=== PATIENT | female | born 1945 | race Caucasian/White ===

== ENCOUNTER 2018-08-15 22:03 | Emergency (ER) | payer MEDICARE, OTHER ==
[2018-08-15 22:11] VITALS: BP 133/85
[2018-08-15] MEDS ORDERED: Albuterol/Ipratropium 3.0-0.5 MG/3 ML Neb Soln NEB ONE (22:29)
--- NOTE | 2018-08-15 22:35 | EDM.PDOC ---
ED HPI GENERAL MEDICAL PROBLEM - General Chief Complaint: Respiratory Problem Stated Complaint: shortness of breath Time Seen by Provider: 08/15/18 22:08 Source of Information: Reports: Patient, RN, RN Notes Reviewed History Limitations: Reports: No Limitations - History of Present Illness INITIAL COMMENTS - FREE TEXT/NARRATIVE: Patient presents to the ED at [facility] complaining of SOB, wheezing, productive cough, and a hoarse voice. Symptoms started about 2 days ago and have progressively gotten worse. Patient denies any eye or ear problems. No chest pain. Patient denies any N/V/D. No focal neurological complaints. Patient has not taken anything OTC. Patient is trying to stay well hydrated with good PO fluid intake. Close family members have been sick with similar symptoms. Patient states she has a slight sore throat. She states her granddaughter had "strep" last week. Onset Date: 08/13/18 - Related Data Allergies Allergy/AdvReac Type Severity Reaction Status Date / Time Penicillins Allergy Hives Verified 08/15/18 22:09 Home Meds: Home Meds Albuterol Sulfate [Albuterol Sulfate HFA] 2 puff INH Q4H PRN 08/11/14 [History] Aspirin [Halfprin] 81 mg PO DAILY 08/11/14 [History] Cyclobenzaprine [Flexeril] 5 - 10 mg PO TID PRN 08/11/14 [History] Rosuvastatin [Crestor] 10 mg PO DAILY 08/11/14 [History] Carvedilol [Coreg] 12.5 mg PO BIDMEALS 08/05/16 [History] Furosemide [Lasix] 40 mg PO DAILY@0800 08/05/16 [History] Lisinopril [Zestril] 5 mg PO DAILY 08/05/16 [History] Nitroglycerin [Nitrostat] 0.4 mg SL Q5M PRN 08/05/16 [History] metFORMIN [Glucophage] 500 mg PO BIDMEALS 08/05/16 [History] Cetirizine [ZyrTEC] 10 mg PO DAILY PRN 10/20/17 [History] Furosemide 20 mg PO DAILY@1200 10/20/17 [History] Omeprazole 20 mg PO DAILY PRN 10/20/17 [History] Tiotropium Br/Olodaterol HCl [Stiolto Respimat Inhal [place]] 2 puff PO DAILY [History] Triamcinolone Acetonide [Nasacort] 1 spray NASBOTH DAILY PRN 10/20/17 [History] Azithromycin [Zithromax] 250 mg PO DAILY 4 Days #4 tab 08/15/18 [Rx] predniSONE 20 mg PO DAILY 3 Days #3 tab 08/15/18 [Rx] Past Medical History HEENT History: Reports: Other (See Below) Other HEENT History: allergic rhinitis. presbyopia. hypermetropia. blepharitis Cardiovascular History: Reports: Hypertension, Stents Other Cardiovascular History: tachycardia, varicose veins Respiratory History: Reports: COPD Gastrointestinal History: Reports: GERD Other Gastrointestinal History: hx colon polyps Genitourinary History: Reports: Other (See Below) Other Genitourinary History: stress incont. bladder surgery(urethropexy) Musculoskeletal History: Reports: Back Pain, Chronic, Osteoarthritis Other Musculoskeletal History: carpal tunnel suyndrome Endocrine/Metabolic History: Reports: Diabetes, Type II Other Dermatologic History: rosacea - Past Surgical History HEENT Surgical History: Reports: Adenoidectomy, Cataract Surgery, Tonsillectomy Other Female Surgeries/Procedures: bladder sx Endocrine Surgical History: Reports: Other (See Below) Other Endocrine Surgeries/Procedures: thyroid nodule Social & Family History - Tobacco Use Smoking Status *Q: Former Smoker Used Tobacco, but Quit: Yes Month/Year Tobacco Last Used: quit 20 yrs ago - Caffeine Use Caffeine Use: Reports: Soda ED ROS GENERAL - Review of Systems Review Of Systems: See Below Constitutional: Denies: Fever, Chills, Weakness HEENT: Reports: Throat Pain, Throat Swelling. Denies: Ear Pain, Eye Discharge, Rhinitis, Sinus Problem Respiratory: Reports: Shortness of Breath, Wheezing, Cough Cardiovascular: Denies: Chest Pain, Palpitations GI/Abdominal: Denies: Abdominal Pain, Nausea, Vomiting Skin: Reports: No Symptoms Neurological: Reports: No Symptoms ED EXAM, GENERAL - Physical Exam Exam: See Below Exam Limited By: No Limitations General Appearance: Alert, No Apparent Distress Eye Exam: Bilateral Eye: Normal Inspection, PERRL Ears: Normal External Exam, Normal Canal, Normal TMs Ear Exam: Bilateral Ear: TM normal Nose: Normal Inspection, Normal Mucosa Throat/Mouth: Other (mild erythema and very dry mucous membranes) Neck: Supple Respiratory/Chest: No Respiratory Distress, Decreased Breath Sounds, Rhonchi, Wheezing Cardiovascular: Normal Peripheral Pulses, Regular Rate, Rhythm Peripheral Pulses: 2+: Radial (L), Radial (R) GI/Abdominal: Normal Bowel Sounds, Soft, Non-Tender Neurological: Alert, Oriented Skin Exam: Warm, Dry, Intact, Normal Color Course - Vital Signs Last Recorded V/S: Last Vital Signs Temp 36.4 C 08/15/18 22:09 Pulse 88 08/15/18 22:09 Resp 26 H 08/15/18 22:09 BP 133/85 08/15/18 22:09 Pulse Ox 91 L 08/15/18 22:09 - Orders/Labs/Meds Orders: Active Orders 24 hr Category Date Time Status RT Aerosol Therapy [RC] ASDIRECTED Care 08/15/18 22:29 Active Chest 2V [CR] Stat Exams 08/15/18 22:30 Taken CULTURE STREP A CONFIRMATION [RM] Stat Lab 08/15/18 22:50 Results STREP SCRN A RAPID W CULT CONF [RM] Stat Lab 08/15/18 22:50 Results predniSONE [Take Home: predniSONE 20 MG, 2 Tab Pack] Med 08/15/18 23:15 Once 1 packet PO ONETIME ONE Meds: Medications Discontinued Medications Generic Name Dose Route Start Last Admin Trade Name Khurram PRN Reason Stop Dose Admin Albuterol/Ipratropium 3 ml 08/15/18 22:29 08/15/18 22:32 Duoneb 3.0-0.5 Mg/3 Ml NEB 08/15/18 22:30 3 ml ONETIME ONE Administration Azithromycin 1 packet 08/15/18 23:12 Take Home: Azithromycin 250 Mg, 2 Tab Pack PO 08/15/18 23:13 ONETIME ONE Departure - Departure Time of Disposition: 23:17 Disposition: Home, Self-Care 01 Condition: Good Clinical Impression: Wheezing Acute bronchitis Qualifiers: Bronchitis organism: unspecified organism Qualified Code(s): J20.9 - Acute bronchitis, unspecified - Discharge Information *PRESCRIPTION DRUG MONITORING PROGRAM REVIEWED*: Not Applicable *COPY OF PRESCRIPTION DRUG MONITORING REPORT IN PATIENT MARIAH: Not Applicable Prescriptions: Azithromycin [Zithromax] 250 mg PO DAILY 4 Days #4 tab predniSONE 20 mg PO DAILY 3 Days #3 tab Instructions: Acute Bronchitis, Adult Referrals: Batsheva Navarrete PA-C [Primary Care Provider] - Forms: ED Department Discharge Additional Instructions: 1. Stay well hydrated and rest 2. Take medication as directed for the full coarse 3. Cough will linger for a couple more weeks 4. LOTS of water 5. See your PCP next week as symptoms warrant - Problem List Review Problem List Initiated/Reviewed/Updated: Yes - My Orders Last 24 Hours: My Active Orders 08/15/18 22:29 RT Aerosol Therapy [RC] ASDIRECTED 08/15/18 22:30 Chest 2V [CR] Stat 08/15/18 22:50 CULTURE STREP A CONFIRMATION [RM] Stat STREP SCRN A RAPID W CULT CONF [RM] Stat 08/15/18 23:15 predniSONE [Take Home: predniSONE 20 MG, 2 Tab Pack] 1 packet PO ONETIME ONE - Assessment/Plan Last 24 Hours: My Active Orders 08/15/18 22:29 RT Aerosol Therapy [RC] ASDIRECTED 08/15/18 22:30 Chest 2V [CR] Stat 08/15/18 22:50 CULTURE STREP A CONFIRMATION [RM] Stat STREP SCRN A RAPID W CULT CONF [RM] Stat 08/15/18 23:15 predniSONE [Take Home: predniSONE 20 MG, 2 Tab Pack] 1 packet PO ONETIME ONE Assessment:: Acute Bronchitis Wheezing Hx of Pneumonia Plan: Given the patients strong pneumonia history, with start ZPak empirically. Prednisone daily for 5 days and have patient f/u with PCP this week. Patient agrees with POC and wishes to proceed.
[2018-08-15] MEDS ORDERED: Take Home: Azithromycin 250 MG, 2 Tab Pack PO ONE (23:12)
[2018-08-15] MEDS ORDERED: Take Home: predniSONE 20 MG, 2 Tab Pack PO ONE (23:15)
== END 2018-08-15 23:29 | disposition home or self-care (01) ==
LOC: VM.ED 22:03
DX: J20.9 Acute bronchitis, unspecified (principal); J44.9 Chronic obstructive pulmonary disease, unspecified; E11.9 Type 2 diabetes mellitus without complications; I10 Essential (primary) hypertension; Z87.891 Personal history of nicotine dependence; Z88.0 Allergy status to penicillin; Z87.01 Personal history of pneumonia (recurrent)
CPT/HCPCS: 71046; 87081; 87880-QW; 99285; A9270-GY; J7620-GY

== ENCOUNTER 2018-08-16 02:41 | Inpatient (IN) | payer MEDICARE, OTHER ==
[2018-08-16] MEDS ORDERED: methylPREDNISolone Sodium Succinate 125 MG/2 ML SDV IVPUSH ONE (02:48)
[2018-08-16] MEDS ORDERED: Albuterol/Ipratropium 3.0-0.5 MG/3 ML Neb Soln NEB ONE ×2 (02:48→02:57)
[2018-08-16] MEDS ORDERED: Sodium Chloride 0.9% 1,000 ML IV ONE (02:49)
--- NOTE | 2018-08-16 02:55 | EDM.PDOC ---
ED HPI GENERAL MEDICAL PROBLEM - General Chief Complaint: Respiratory Problem Stated Complaint: dyspnea Time Seen by Provider: 08/16/18 02:43 Source of Information: Reports: Patient, Family, RN, RN Notes Reviewed History Limitations: Reports: No Limitations - History of Present Illness INITIAL COMMENTS - FREE TEXT/NARRATIVE: Patient returns to the ED at [facility] for worsening upper respiratory and audible wheezing. Patient was seen earlier in this ER and diagnosed with acute bronchitis. Patient states she felt ok when she was at home, but progressively the wheezing worsened. She states she still has a cough, but it is very dry. She feels short of breath. No chest pain. No focal neurological problems. Patient states her chest feels "really tight." She states it is difficult to take in a deep breath. - Related Data Allergies Allergy/AdvReac Type Severity Reaction Status Date / Time Penicillins Allergy Hives Verified 08/16/18 02:42 Home Meds: Home Meds Albuterol Sulfate [Albuterol Sulfate HFA] 2 puff INH Q4H PRN 08/11/14 [History] Aspirin [Halfprin] 81 mg PO DAILY 08/11/14 [History] Cyclobenzaprine [Flexeril] 5 - 10 mg PO TID PRN 08/11/14 [History] Rosuvastatin [Crestor] 10 mg PO DAILY 08/11/14 [History] Carvedilol [Coreg] 12.5 mg PO BIDMEALS 08/05/16 [History] Furosemide [Lasix] 40 mg PO DAILY@0800 08/05/16 [History] Lisinopril [Zestril] 5 mg PO DAILY 08/05/16 [History] Nitroglycerin [Nitrostat] 0.4 mg SL Q5M PRN 08/05/16 [History] metFORMIN [Glucophage] 500 mg PO BIDMEALS 08/05/16 [History] Cetirizine [ZyrTEC] 10 mg PO DAILY PRN 10/20/17 [History] Furosemide 20 mg PO DAILY@1200 10/20/17 [History] Omeprazole 20 mg PO DAILY PRN 10/20/17 [History] Tiotropium Br/Olodaterol HCl [Stiolto Respimat Inhal [place]] 2 puff PO DAILY [History] Triamcinolone Acetonide [Nasacort] 1 spray NASBOTH DAILY PRN 10/20/17 [History] Azithromycin [Zithromax] 250 mg PO DAILY 4 Days #4 tab 08/15/18 [Rx] predniSONE 20 mg PO DAILY 3 Days #3 tab 08/15/18 [Rx] Past Medical History HEENT History: Reports: Other (See Below) Other HEENT History: allergic rhinitis. presbyopia. hypermetropia. blepharitis Cardiovascular History: Reports: Hypertension, Stents Other Cardiovascular History: tachycardia, varicose veins Respiratory History: Reports: COPD Gastrointestinal History: Reports: GERD Other Gastrointestinal History: hx colon polyps Genitourinary History: Reports: Other (See Below) Other Genitourinary History: stress incont. bladder surgery(urethropexy) Musculoskeletal History: Reports: Back Pain, Chronic, Osteoarthritis Other Musculoskeletal History: carpal tunnel suyndrome Endocrine/Metabolic History: Reports: Diabetes, Type II Other Dermatologic History: rosacea - Past Surgical History HEENT Surgical History: Reports: Adenoidectomy, Cataract Surgery, Tonsillectomy Other Female Surgeries/Procedures: bladder sx Endocrine Surgical History: Reports: Other (See Below) Other Endocrine Surgeries/Procedures: thyroid nodule Social & Family History - Tobacco Use Smoking Status *Q: Former Smoker Used Tobacco, but Quit: Yes Month/Year Tobacco Last Used: 18 years ago - Caffeine Use Caffeine Use: Reports: Soda ED ROS GENERAL - Review of Systems Review Of Systems: See Below Constitutional: Reports: Weakness. Denies: Fever, Chills HEENT: Reports: Throat Pain. Denies: Ear Discharge, Eye Discharge Respiratory: Reports: Shortness of Breath, Wheezing, Cough Cardiovascular: Denies: Chest Pain, Palpitations GI/Abdominal: Denies: Abdominal Pain, Nausea, Vomiting Skin: Reports: No Symptoms Neurological: Reports: No Symptoms ED EXAM, GENERAL - Physical Exam Exam: See Below Exam Limited By: No Limitations General Appearance: Alert, Mild Distress, Obese Respiratory/Chest: No Respiratory Distress, Decreased Breath Sounds, Wheezing Cardiovascular: Normal Peripheral Pulses, Regular Rate, Rhythm GI/Abdominal: Normal Bowel Sounds, Soft, Non-Tender Neurological: Alert, Oriented Skin Exam: Warm, Dry, Intact, Normal Color Course - Vital Signs Last Recorded V/S: Last Vital Signs Temp 36.4 C 08/16/18 02:42 Pulse 102 H 08/16/18 02:42 Resp 30 H 08/16/18 02:42 BP 161/77 H 08/16/18 02:42 Pulse Ox 69 L 08/16/18 02:42 - Orders/Labs/Meds Orders: Active Orders 24 hr Category Date Time Status RT Aerosol Therapy [RC] ASDIRECTED Care 08/16/18 02:48 Active BASIC METABOLIC PANEL,BMP [CHEM] Stat Lab 08/16/18 02:54 Ordered BLOOD GAS ARTERIAL [BG] Stat Lab 08/16/18 02:54 Ordered CBC WITH AUTO DIFF [HEME] Stat Lab 08/16/18 02:54 Ordered MAGNESIUM [CHEM] Stat Lab 08/16/18 02:54 Ordered Sodium Chloride 0.9% [Normal Saline] 1,000 ml Med 08/16/18 02:49 Active IV ONETIME Sodium Chloride 0.9% [Saline Flush] Med 08/16/18 02:50 Active 10 ml FLUSH ASDIRECTED PRN Peripheral IV Insertion Adult [OM.PC] Routine Oth 08/16/18 02:50 Ordered Medication Orders Sodium Chloride (Normal Saline) 1,000 mls @ 999 mls/hr IV ONETIME ONE Stop: 08/16/18 03:49 Last Admin: 08/16/18 02:58 Dose: 999 mls/hr Sodium Chloride (Saline Flush) 10 ml FLUSH ASDIRECTED PRN PRN Reason: Keep Vein Open Meds: Medications Generic Name Dose Route Start Last Admin Trade Name Freq PRN Reason Stop Dose Admin Sodium Chloride 1,000 mls @ 999 mls/hr 08/16/18 02:49 08/16/18 02:58 Normal Saline IV 08/16/18 03:49 999 mls/hr ONETIME ONE Administration Sodium Chloride 10 ml 08/16/18 02:50 Saline Flush FLUSH ASDIRECTED PRN Keep Vein Open Discontinued Medications Generic Name Dose Route Start Last Admin Trade Name Freq PRN Reason Stop Dose Admin Albuterol/Ipratropium 3 ml 08/16/18 02:48 08/16/18 02:48 Duoneb 3.0-0.5 Mg/3 Ml NEB 08/16/18 02:49 3 ml ONETIME ONE Administration Albuterol/Ipratropium 3 ml 08/16/18 02:57 08/16/18 02:59 Duoneb 3.0-0.5 Mg/3 Ml NEB 08/16/18 02:58 3 ml ONETIME ONE Administration Methylprednisolone Sodium Succinate 125 mg 08/16/18 02:48 08/16/18 03:00 Solu-Medrol IVPUSH 08/16/18 02:49 125 mg ONETIME ONE Administration Departure - Departure Time of Disposition: 03:14 Disposition: Refer to Observation Condition: Fair Clinical Impression: COPD exacerbation - Discharge Information *PRESCRIPTION DRUG MONITORING PROGRAM REVIEWED*: Not Applicable *COPY OF PRESCRIPTION DRUG MONITORING REPORT IN PATIENT MARIAH: Not Applicable - Problem List Review Problem List Initiated/Reviewed/Updated: Yes - My Orders Last 24 Hours: My Active Orders 08/16/18 02:48 RT Aerosol Therapy [RC] ASDIRECTED 08/16/18 02:49 Sodium Chloride 0.9% [Normal Saline] 1,000 ml IV ONETIME 08/16/18 02:50 Sodium Chloride 0.9% [Saline Flush] 10 ml FLUSH ASDIRECTED PRN Peripheral IV Insertion Adult [OM.PC] Routine 08/16/18 02:54 BASIC METABOLIC PANEL,BMP [CHEM] Stat BLOOD GAS ARTERIAL [BG] Stat CBC WITH AUTO DIFF [HEME] Stat MAGNESIUM [CHEM] Stat - Assessment/Plan Last 24 Hours: My Active Orders 08/16/18 02:48 RT Aerosol Therapy [RC] ASDIRECTED 08/16/18 02:49 Sodium Chloride 0.9% [Normal Saline] 1,000 ml IV ONETIME 08/16/18 02:50 Sodium Chloride 0.9% [Saline Flush] 10 ml FLUSH ASDIRECTED PRN Peripheral IV Insertion Adult [OM.PC] Routine 08/16/18 02:54 BASIC METABOLIC PANEL,BMP [CHEM] Stat BLOOD GAS ARTERIAL [BG] Stat CBC WITH AUTO DIFF [HEME] Stat MAGNESIUM [CHEM] Stat Assessment:: Acute COPD exacerbation Plan: Patient will be admitted observation as it is not anticipated patient will need longer than 48 hours.
[2018-08-16] MEDS ORDERED: Ondansetron 4 MG Tab.DIS PO PRN (03:27)
[2018-08-16] MEDS ORDERED: Sodium Chloride 0.9% 1,000 ML IV SCH (03:30)
[2018-08-16] MEDS ORDERED: Nitroglycerin 0.4 MG Tab.SL SL PRN (03:32)
[2018-08-16] MEDS ORDERED: Omeprazole 20 MG Cap.CR PO PRN (03:32)
[2018-08-16 03:55] LABS: CHLORIDE,CL 103 mmol/L (98-107); SODIUM,NA 139 mmol/L (136-145)
[2018-08-16 03:57] LABS: ANION GAP 11.3 mmol/L (10-20)
[2018-08-16] MEDS: Enoxaparin 30 MG/0.3 ML Syringe SUBCUT SCH ×2 (04:51→19:47)
[2018-08-16] MEDS: Albuterol/Ipratropium 3.0-0.5 MG/3 ML Neb Soln NEB PRN ×3 (04:51→21:04)
[2018-08-16] MEDS: Levothyroxine 150 MCG Tab PO SCH (06:32)
[2018-08-16] MEDS: Albuterol/Ipratropium 3.0-0.5 MG/3 ML Neb Soln NEB SCH ×4 (07:18→18:07)
[2018-08-16] MEDS ORDERED: Lisinopril 5 MG Tab PO SCH (08:00)
[2018-08-16] MEDS: Carvedilol 12.5 MG Tab PO SCH ×2 (08:23→18:07)
[2018-08-16] MEDS: Aspirin 81 MG Tab.EC PO SCH (08:23)
[2018-08-16] MEDS: STIOLTO RESPIMAT INHAL PO SCH (08:23)
[2018-08-16] MEDS: metFORMIN 500 MG Tab PO SCH ×2 (08:23→18:07)
[2018-08-16] MEDS: Furosemide 40 MG Tab PO SCH (08:24)
[2018-08-16] MEDS: Azithromycin 500 MG in Sodium Chloride 0.9% 250 ML IV SCH (08:24)
[2018-08-16 09:36] LABS: CHLORIDE,CL 102 mmol/L (98-107); SODIUM,NA 137 mmol/L (136-145)
[2018-08-16 09:39] LABS: ANION GAP 11.5 mmol/L (10-20)
[2018-08-16] MEDS ORDERED: Iopamidol 612 MG/ML 100 ML Bottle IVPUSH ONE (09:42)
[2018-08-16] MEDS: Furosemide 20 MG Tab PO SCH (13:52)
[2018-08-16] MEDS ORDERED: methylPREDNISolone Sodium Succinate 40 MG/1 ML SDV IVPUSH SCH (15:00)
--- NOTE | 2018-08-16 18:31 | PCM.PN ---
- General Info Date of Service: 08/16/18 Admission Dx/Problem (Free Text): Acute COPD exacerbation Subjective Update: Patient offers no specific complaints. Patient states her breathing feels a little better. She is no longer having audible wheezing. She has not had a BM since admission. Urinating without problems. VSS Afebrile. Denies any chest pain. No foal neurological problems. Functional Status: Reports: Pain Controlled, Tolerating Diet, Urinating, Incentive Spirometry Pain Score: 0 - Review of Systems General: Denies: Fever, Weakness Pulmonary: Reports: Shortness of Breath, Cough, Wheezing Cardiovascular: Denies: Chest Pain, Palpitations Gastrointestinal: Denies: Abdominal Pain, Nausea, Vomiting Skin: Reports: No Symptoms Neurological: Reports: No Symptoms - Patient Data Vitals - Most Recent: Last Vital Signs Temp 36.3 C 08/16/18 18:00 Pulse 95 08/16/18 18:00 Resp 22 H 08/16/18 18:00 BP 135/58 L 08/16/18 18:00 Pulse Ox 92 L 08/16/18 18:00 Weight - Most Recent: 106.594 kg I&O - Last 24 Hours: Intake & Output 08/16/18 08/16/18 08/16/18 06:59 14:59 22:59 Intake Total 1299 809 Output Total 1000 Balance 1299 -191 Lab Results Last 24 Hours: Laboratory Results - last 24 hr 08/16/18 08/16/18 08/16/18 Range/Units 03:16 03:16 03:30 WBC 9.6 (4.0-10.0) x10^3/uL RBC 5.02 (4.00-5.50) x10^6/uL Hgb 13.7 D (12.0-16.0) g/dL Hct 42.1 (33.0-47.0) % MCV 83.9 (78.0-93.0) fL MCH 27.3 (26.0-32.0) pg MCHC 32.5 (32.0-36.0) g/dL RDW Coeff of Osbaldo 15.7 H (10.0-15.0) % Plt Count 243 (130-400) x10^3/uL Neut % (Auto) 78.3 (50.0-80.0) % Lymph % (Auto) 9.9 L (25.0-50.0) % [place] % (Auto) 6.6 (2.0-11.0) % Eos % (Auto) 5.1 H (0.0-4.0) % Baso % (Auto) 0.1 L (0.2-1.2) % PT (9.6-11.4) SEC INR (2.0-3.5) D-Dimer, Quantitative (<=0.58) mg/LFEU POC ABG pH (7.35-7.45) ABG pH 7.38 (7.35-7.45) POC ABG pCO2 (35-45) mmHG ABG pCO2 51 H (35-45) mmHG POC ABG pO2 (80-105) mmHG ABG pO2 69 L (80-105) mmHG POC ABG HCO3 (22-26) mmol/L ABG HCO3 30 H (22-26) mmol/L POC ABG Total CO2 (23-27) mmol/L ABG Total CO2 31 H (23-27) mmol/L POC ABG O2 Sat (95-98) % ABG O2 Content 93 L (95-98) % POC ABG Base Excess (-2-3) mmol/L ABG Base Excess 5 H (-2-3) mmol/L A-a Gradient Not Reportable FiO2 0.32 POC FiO2 Sodium 139 (136-145) mmol/L Potassium 4.3 (3.5-5.1) mmol/L Chloride 103 (98-107) mmol/L Carbon Dioxide 29 (21-32) mmol/L Anion Gap 11.3 (10-20) mmol/L BUN 20 H (7-18) mg/dL Creatinine 0.8 (0.55-1.02) mg/dL Est Cr Clr Drug Dosing TNP Estimated GFR (MDRD) > 60 Glucose 155 H (74-106) mg/dL POC Glucose (74-106) mg/dL Calcium 9.7 (8.5-10.1) mg/dL Magnesium 2.0 (1.8-2.4) mg/dL 08/16/18 08/16/18 08/16/18 Range/Units 03:35 06:33 09:14 WBC 8.2 (4.0-10.0) x10^3/uL RBC 4.83 (4.00-5.50) x10^6/uL Hgb 13.2 (12.0-16.0) g/dL Hct 40.7 (33.0-47.0) % MCV 84.3 (78.0-93.0) fL MCH 27.3 (26.0-32.0) pg MCHC 32.4 (32.0-36.0) g/dL RDW Coeff of Osbaldo 15.6 H (10.0-15.0) % Plt Count 242 (130-400) x10^3/uL Neut % (Auto) 94.5 H (50.0-80.0) % Lymph % (Auto) 4.5 L (25.0-50.0) % [place] % (Auto) 0.9 L (2.0-11.0) % Eos % (Auto) 0.1 (0.0-4.0) % Baso % (Auto) 0.0 L (0.2-1.2) % PT (9.6-11.4) SEC INR (2.0-3.5) D-Dimer, Quantitative (<=0.58) mg/LFEU POC ABG pH 7.378 (7.35-7.45) ABG pH (7.35-7.45) POC ABG pCO2 51 H (35-45) mmHG ABG pCO2 (35-45) mmHG POC ABG pO2 69 L (80-105) mmHG ABG pO2 (80-105) mmHG POC ABG HCO3 30 H (22-26) mmol/L ABG HCO3 (22-26) mmol/L POC ABG Total CO2 31 H (23-27) mmol/L ABG Total CO2 (23-27) mmol/L POC ABG O2 Sat 93 L (95-98) % ABG O2 Content (95-98) % POC ABG Base Excess 5 H (-2-3) mmol/L ABG Base Excess (-2-3) mmol/L A-a Gradient FiO2 POC FiO2 0.32 Sodium (136-145) mmol/L Potassium (3.5-5.1) mmol/L Chloride (98-107) mmol/L Carbon Dioxide (21-32) mmol/L Anion Gap (10-20) mmol/L BUN (7-18) mg/dL Creatinine (0.55-1.02) mg/dL Est Cr Clr Drug Dosing Estimated GFR (MDRD) Glucose (74-106) mg/dL POC Glucose 150 H (74-106) mg/dL Calcium (8.5-10.1) mg/dL Magnesium (1.8-2.4) mg/dL 08/16/18 08/16/18 08/16/18 Range/Units 09:14 09:14 10:46 WBC (4.0-10.0) x10^3/uL RBC (4.00-5.50) x10^6/uL Hgb (12.0-16.0) g/dL Hct (33.0-47.0) % MCV (78.0-93.0) fL MCH (26.0-32.0) pg MCHC (32.0-36.0) g/dL RDW Coeff of Osbaldo (10.0-15.0) % Plt Count (130-400) x10^3/uL Neut % (Auto) (50.0-80.0) % Lymph % (Auto) (25.0-50.0) % [place] % (Auto) (2.0-11.0) % Eos % (Auto) (0.0-4.0) % Baso % (Auto) (0.2-1.2) % PT 10.7 (9.6-11.4) SEC INR 1.0 L (2.0-3.5) D-Dimer, Quantitative 0.19 (<=0.58) mg/LFEU POC ABG pH (7.35-7.45) ABG pH (7.35-7.45) POC ABG pCO2 (35-45) mmHG ABG pCO2 (35-45) mmHG POC ABG pO2 (80-105) mmHG ABG pO2 (80-105) mmHG POC ABG HCO3 (22-26) mmol/L ABG HCO3 (22-26) mmol/L POC ABG Total CO2 (23-27) mmol/L ABG Total CO2 (23-27) mmol/L POC ABG O2 Sat (95-98) % ABG O2 Content (95-98) % POC ABG Base Excess (-2-3) mmol/L ABG Base Excess (-2-3) mmol/L A-a Gradient FiO2 POC FiO2 Sodium 137 (136-145) mmol/L Potassium 4.5 (3.5-5.1) mmol/L Chloride 102 (98-107) mmol/L Carbon Dioxide 28 (21-32) mmol/L Anion Gap 11.5 (10-20) mmol/L BUN 18 (7-18) mg/dL Creatinine 0.9 (0.55-1.02) mg/dL Est Cr Clr Drug Dosing 49.51 Estimated GFR (MDRD) > 60 Glucose 246 H (74-106) mg/dL POC Glucose 175 H (74-106) mg/dL Calcium 8.8 (8.5-10.1) mg/dL Magnesium (1.8-2.4) mg/dL 08/16/18 Range/Units 17:04 WBC (4.0-10.0) x10^3/uL RBC (4.00-5.50) x10^6/uL Hgb (12.0-16.0) g/dL Hct (33.0-47.0) % MCV (78.0-93.0) fL MCH (26.0-32.0) pg MCHC (32.0-36.0) g/dL RDW Coeff of [place]baldo (10.0-15.0) % Plt Count (130-400) x10^3/uL Neut % (Auto) (50.0-80.0) % Lymph % (Auto) (25.0-50.0) % [place] % (Auto) (2.0-11.0) % Eos % (Auto) (0.0-4.0) % Baso % (Auto) (0.2-1.2) % PT (9.6-11.4) SEC INR (2.0-3.5) D-Dimer, Quantitative (<=0.58) mg/LFEU POC ABG pH (7.35-7.45) ABG pH (7.35-7.45) POC ABG pCO2 (35-45) mmHG ABG pCO2 (35-45) mmHG POC ABG pO2 (80-105) mmHG ABG pO2 (80-105) mmHG POC ABG HCO3 (22-26) mmol/L ABG HCO3 (22-26) mmol/L POC ABG Total CO2 (23-27) mmol/L ABG Total CO2 (23-27) mmol/L POC ABG O2 Sat (95-98) % ABG O2 Content (95-98) % POC ABG Base Excess (-2-3) mmol/L ABG Base Excess (-2-3) mmol/L A-a Gradient FiO2 POC FiO2 Sodium (136-145) mmol/L Potassium (3.5-5.1) mmol/L Chloride (98-107) mmol/L Carbon Dioxide (21-32) mmol/L Anion Gap (10-20) mmol/L BUN (7-18) mg/dL Creatinine (0.55-1.02) mg/dL Est Cr Clr Drug Dosing Estimated GFR (MDRD) Glucose (74-106) mg/dL POC Glucose 137 H (74-106) mg/dL Calcium (8.5-10.1) mg/dL Magnesium (1.8-2.4) mg/dL Med Orders - Current: Current Medications Albuterol/Ipratropium (Duoneb 3.0-0.5 Mg/3 Ml) 3 ml NEB Q4HRRT [facility] Last Admin: 08/16/18 18:07 Dose: 3 ml Albuterol/Ipratropium (Duoneb 3.0-0.5 Mg/3 Ml) 3 ml NEB Q2H PRN PRN Reason: Wheezing Last Admin: 08/16/18 09:29 Dose: 3 ml Aspirin (Halfprin) 81 mg PO DAILY [facility] Last Admin: 08/16/18 08:23 Dose: 81 mg Atorvastatin Calcium (Lipitor) 40 mg PO BEDTIME [facility] Carvedilol (Coreg) 12.5 mg PO BIDMEALS [facility] Last Admin: 08/16/18 18:07 Dose: 12.5 mg Clopidogrel Bisulfate (Plavix) 75 mg PO DAILY [facility] Enoxaparin Sodium (Lovenox) 30 mg SUBCUT BEDTIME [facility] Last Admin: 08/16/18 04:51 Dose: 30 mg Furosemide (Lasix) 20 mg PO DAILY@1200 [facility] Last Admin: 08/16/18 13:52 Dose: 20 mg Furosemide (Lasix) 40 mg PO DAILY@0800 [facility] Last Admin: 08/16/18 08:24 Dose: 40 mg Azithromycin 500 mg/ Sodium (Chloride) 250 mls @ 250 mls/hr IV DAILY [facility] Last Admin: 08/16/18 08:24 Dose: 250 mls/hr Levothyroxine Sodium (Levothyroxine) 150 mcg PO ACBREAKFAST [facility] Last Admin: 08/16/18 06:32 Dose: 150 mcg Losartan Potassium (Cozaar) 25 mg PO DAILY [facility] Metformin HCl (Glucophage) 500 mg PO BIDMEALS [facility] Last Admin: 08/16/18 18:07 Dose: 500 mg Methylprednisolone Sodium Succinate (Solu-Medrol) 40 mg IVPUSH Q12H [facility] Last Admin: 08/16/18 16:41 Dose: 40 mg Nitroglycerin (Nitrostat) 0.4 mg SL Q5M PRN PRN Reason: Chest Pain Stiolto Respimat (InhalOwn Med) 2 puff PO DAILYRT [facility] Last Admin: 08/16/18 08:23 Dose: 2 puff Omeprazole (Omeprazole) 20 mg PO DAILY PRN PRN Reason: Heartburn Ondansetron HCl (Zofran Odt) 4 mg PO Q6H PRN PRN Reason: nausea, able to take PO Sodium Chloride (Saline Flush) 10 ml FLUSH ASDIRECTED PRN PRN Reason: Keep Vein Open Discontinued Medications Albuterol/Ipratropium (Duoneb 3.0-0.5 Mg/3 Ml) 3 ml NEB ONETIME ONE Stop: 08/16/18 02:49 Last Admin: 08/16/18 02:48 Dose: 3 ml Albuterol/Ipratropium (Duoneb 3.0-0.5 Mg/3 Ml) 3 ml NEB ONETIME ONE Stop: 08/16/18 02:58 Last Admin: 08/16/18 02:59 Dose: 3 ml Sodium Chloride (Normal Saline) 1,000 mls @ 999 mls/hr IV ONETIME ONE Stop: 08/16/18 03:49 Last Admin: 08/16/18 02:58 Dose: 999 mls/hr Sodium Chloride (Normal Saline) 1,000 mls @ 50 mls/hr IV ASDIRECTED [facility] Last Admin: 08/16/18 04:13 Dose: 50 mls/hr Iopamidol (Isovue-300 (61%)) 100 ml IVPUSH ONETIME ONE Stop: 08/16/18 09:43 Last Admin: 08/16/18 11:12 Dose: 100 ml Lisinopril (Prinivil) 5 mg PO DAILY [facility] Methylprednisolone Sodium Succinate (Solu-Medrol) 125 mg IVPUSH ONETIME ONE Stop: 08/16/18 02:49 Last Admin: 08/16/18 03:00 Dose: 125 mg - Exam Quality Assessment: Supplemental Oxygen, DVT Prophylaxis General: Alert, Oriented, Cooperative, No Acute Distress Lungs: Normal Respiratory Effort, Wheezing, Other (slightly tachypnic 20-24 at rest) Cardiovascular: Regular Rate, Regular Rhythm GI/Abdominal Exam: Normal Bowel Sounds, Soft, Non-Tender Extremities: Pedal Edema (chronic) Skin: Warm, Dry, Intact Neurological: No New Focal Deficit - Problem List & Annotations (1) COPD exacerbation SNOMED Code(s): 187104713 Code(s): J44.1 - CHRONIC OBSTRUCTIVE PULMONARY DISEASE W (ACUTE) EXACERBATION Status: Acute Priority: High Current Visit: Yes Onset Date : ~08/15/18 - Problem List Review Problem List Initiated/Reviewed/Updated: Yes - My Orders Last 24 Hours: My Active Orders 08/16/18 02:48 RT Aerosol Therapy [RC] ASDIRECTED 08/16/18 02:50 Sodium Chloride 0.9% [Saline Flush] 10 ml FLUSH ASDIRECTED PRN Peripheral IV Insertion Adult [OM.PC] Routine 08/16/18 03:27 Patient Status [ADT] Routine Height and Weight [RC] .PRN Intake and Output [RC] ,10 April Shower [RC] ASDIRECTED Oxygen Therapy [RC] 08,20 Up ad Karol [RC] ASDIRECTED VTE/DVT Education [RC] .PRN Vital Signs [RC] 06,10,14,18,22,02 Ondansetron [Zofran ODT] 4 mg PO Q6H PRN Resuscitation Status Routine 08/16/18 03:28 Cardiac Monitoring [RC] 06,10,14,18,22,02 08/16/18 03:29 Respiratory Care Assess and Treatment [CONS] Routine 08/16/18 03:30 Enoxaparin [Lovenox] 30 mg SUBCUT BEDTIME Sodium Chloride 0.9% [Normal Saline] 1,000 ml IV ASDIRECTED May Take Own Home Medications [OM.PC] Routine 08/16/18 03:31 RT Aerosol Therapy [RC] 03,07,11,15,19,23 Albuterol/Ipratropium [DuoNeb 3.0-0.5 MG/3 ML] 3 ml NEB Q2H PRN 08/16/18 03:32 Accu Check [Blood Glucose Check, Bedside] [RC] 07,11,17,20 Nitroglycerin [Nitrostat] 0.4 mg SL Q5M PRN Omeprazole 20 mg PO DAILY PRN 08/16/18 07:00 Albuterol/Ipratropium [DuoNeb 3.0-0.5 MG/3 ML] 3 ml NEB Q4HRRT Levothyroxine 150 mcg PO ACBREAKFAST Tiotropium Br/Olodaterol HCl [Stiolto Respimat Inhal [place]] 2 puff PO DAILYRT 08/16/18 08:00 Aspirin [Halfprin] 81 mg PO DAILY Azithromycin [Zithromax] 500 mg Sodium Chloride 0.9% [Normal Saline] 250 ml IV DAILY Carvedilol [Coreg] 12.5 mg PO BIDMEALS Furosemide [Lasix] 40 mg PO DAILY@0800 metFORMIN [Glucophage] 500 mg PO BIDMEALS 08/16/18 10:00 Chest PE [Ang Chest] [CT] Routine 08/16/18 12:00 Furosemide [Lasix] 20 mg PO DAILY@1200 08/16/18 15:00 methylPREDNISolone Sod Succ [Solu-MEDROL] 40 mg IVPUSH Q12H 08/16/18 20:00 atorvaSTATin [Lipitor] 40 mg PO BEDTIME 08/16/18 Breakfast [place] [employer] Diet [DIET] 08/17/18 08:00 Clopidogrel [Plavix] 75 mg PO DAILY Losartan [Cozaar] 25 mg PO DAILY - Assessment Assessment:: Acute COPD exacerbation - Plan Plan:: 72 yo female patient with a past medical history of COPD, HTN, high cholesterol , diastolic HF, was admitted last night for acute COPD exacerbation. CT scan of chest was negative for pneumonia or PE. Will stop IVF as patient is taking PO fluids well. She is tolerating her diet ok. Will need BM meds tomorrow if no BM by then. Continue with Azithromycin 500 mg daily. Change Solumedrol to daily. Continue to watch blood sugars. Recheck labs in AM. Patient may need status change to acute if wheezing does not improve. Will reassess this tomorrow.
[2018-08-16] MEDS: atorvaSTATin 40 MG Tab PO SCH (19:47)
[2018-08-16] MEDS ORDERED: Non-Formulary Medication 1 Each (Rosuvastatin [Crestor] 10 MG) PO SCH (20:00)
[2018-08-17] MEDS: Albuterol/Ipratropium 3.0-0.5 MG/3 ML Neb Soln NEB SCH ×7 (00:30→22:21)
[2018-08-17] MEDS: Levothyroxine 150 MCG Tab PO SCH (06:27)
[2018-08-17] MEDS: STIOLTO RESPIMAT INHAL PO SCH (06:51)
[2018-08-17 06:54] LABS: CHLORIDE,CL 103 mmol/L (98-107); SODIUM,NA 139 mmol/L (136-145)
[2018-08-17 07:05] LABS: ANION GAP 7.2 mmol/L (10-20)
[2018-08-17] MEDS: Aspirin 81 MG Tab.EC PO SCH (07:57)
[2018-08-17] MEDS: Clopidogrel 75 MG Tab PO SCH (07:57)
[2018-08-17] MEDS: Losartan 25 MG Tab PO SCH (07:57)
[2018-08-17] MEDS: Carvedilol 12.5 MG Tab PO SCH ×2 (07:57→17:59)
[2018-08-17] MEDS: Furosemide 40 MG Tab PO SCH (07:57)
[2018-08-17] MEDS: metFORMIN 500 MG Tab PO SCH ×2 (07:57→17:59)
[2018-08-17] MEDS: Insulin Regular, Human 100 Units/ML 3 ML Vial SUBCUT SCH ×3 (07:58→17:59)
[2018-08-17] MEDS: Azithromycin 500 MG in Sodium Chloride 0.9% 250 ML IV SCH (07:58)
[2018-08-17] MEDS: Sodium Chloride 0.9% 10 ML Syringe FLUSH PRN ×3 (07:59→14:27)
[2018-08-17] MEDS ORDERED: methylPREDNISolone Sodium Succinate 40 MG/1 ML SDV IVPUSH SCH (08:00)
[2018-08-17] MEDS ORDERED: Furosemide 40 MG/4 ML VIAL IV ONE (09:16)
[2018-08-17] MEDS ORDERED: Magnesium Hydroxide 400 MG/5 ML Susp 30 ML Cup PO PRN (09:21)
--- NOTE | 2018-08-17 09:31 | PCM.PN ---
- General Info Date of Service: 08/17/18 Admission Dx/Problem (Free Text): Assuming care for this patient from [facility]. Please refer to his H and P. Pt. states that she is feeling better. She was admitted for acute COPD exacerbation. She was started on solu medrol IV and IV azithromycin. She is getting duoneb breathing treatments every 4 hours. She continues to have some wheezing. She is noted to have +3 peripheral edema to lower extremities. She does have a history of CHF and is on oral lasix. She has been afebrile. Dyspnea is improving. She in type 2 DM and takes metformin. Her blood sugars have been elevated likely due to the use of steroids. Functional Status: Reports: Pain Controlled - Review of Systems General: Reports: No Symptoms HEENT: Reports: No Symptoms Pulmonary: Reports: Cough, Wheezing Cardiovascular: Reports: Edema Gastrointestinal: Reports: No Symptoms Genitourinary: Reports: No Symptoms Musculoskeletal: Reports: No Symptoms Skin: Reports: No Symptoms Neurological: Reports: No Symptoms Psychiatric: Reports: No Symptoms - Patient Data Vitals - Most Recent: Last Vital Signs Temp 36.9 C 08/17/18 06:00 Pulse 97 08/17/18 06:00 Resp 20 08/17/18 06:00 BP 147/67 H 08/17/18 06:00 Pulse Ox 98 08/17/18 07:10 Weight - Most Recent: 106.594 kg I&O - Last 24 Hours: Intake & Output 08/16/18 08/17/18 08/17/18 22:59 06:59 14:59 Intake Total 1049 1087 520 Output Total 1400 1001 Balance -351 86 520 Lab Results Last 24 Hours: Laboratory Results - last 24 hr 08/16/18 08/16/18 08/16/18 Range/Units 09:14 09:14 09:14 WBC 8.2 (4.0-10.0) x10^3/uL RBC 4.83 (4.00-5.50) x10^6/uL Hgb 13.2 (12.0-16.0) g/dL Hct 40.7 (33.0-47.0) % MCV 84.3 (78.0-93.0) fL MCH 27.3 (26.0-32.0) pg MCHC 32.4 (32.0-36.0) g/dL RDW Coeff of Osbaldo 15.6 H (10.0-15.0) % Plt Count 242 (130-400) x10^3/uL Neut % (Auto) 94.5 H (50.0-80.0) % Lymph % (Auto) 4.5 L (25.0-50.0) % [place] % (Auto) 0.9 L (2.0-11.0) % Eos % (Auto) 0.1 (0.0-4.0) % Baso % (Auto) 0.0 L (0.2-1.2) % PT 10.7 (9.6-11.4) SEC INR 1.0 L (2.0-3.5) D-Dimer, Quantitative 0.19 (<=0.58) mg/LFEU Sodium 137 (136-145) mmol/L Potassium 4.5 (3.5-5.1) mmol/L Chloride 102 (98-107) mmol/L Carbon Dioxide 28 (21-32) mmol/L Anion Gap 11.5 (10-20) mmol/L BUN 18 (7-18) mg/dL Creatinine 0.9 (0.55-1.02) mg/dL Est Cr Clr Drug Dosing 49.51 mL/min Estimated GFR (MDRD) > 60 Glucose 246 H (74-106) mg/dL POC Glucose (74-106) mg/dL Calcium 8.8 (8.5-10.1) mg/dL 08/16/18 08/16/18 08/16/18 Range/Units 10:46 17:04 19:46 WBC (4.0-10.0) x10^3/uL RBC (4.00-5.50) x10^6/uL Hgb (12.0-16.0) g/dL Hct (33.0-47.0) % MCV (78.0-93.0) fL MCH (26.0-32.0) pg MCHC (32.0-36.0) g/dL RDW Coeff of Osbaldo (10.0-15.0) % Plt Count (130-400) x10^3/uL Neut % (Auto) (50.0-80.0) % Lymph % (Auto) (25.0-50.0) % [place] % (Auto) (2.0-11.0) % Eos % (Auto) (0.0-4.0) % Baso % (Auto) (0.2-1.2) % PT (9.6-11.4) SEC INR (2.0-3.5) D-Dimer, Quantitative (<=0.58) mg/LFEU Sodium (136-145) mmol/L Potassium (3.5-5.1) mmol/L Chloride (98-107) mmol/L Carbon Dioxide (21-32) mmol/L Anion Gap (10-20) mmol/L BUN (7-18) mg/dL Creatinine (0.55-1.02) mg/dL Est Cr Clr Drug Dosing mL/min Estimated GFR (MDRD) Glucose (74-106) mg/dL POC Glucose 175 H 137 H 234 H (74-106) mg/dL Calcium (8.5-10.1) mg/dL 08/17/18 08/17/18 08/17/18 Range/Units 06:15 06:15 06:27 WBC 7.6 (4.0-10.0) x10^3/uL RBC 4.50 (4.00-5.50) x10^6/uL Hgb 12.2 (12.0-16.0) g/dL Hct 38.2 (33.0-47.0) % MCV 84.9 (78.0-93.0) fL MCH 27.1 (26.0-32.0) pg MCHC 31.9 L (32.0-36.0) g/dL RDW Coeff of Osbaldo 15.9 H (10.0-15.0) % Plt Count 262 (130-400) x10^3/uL Neut % (Auto) 82.3 H (50.0-80.0) % Lymph % (Auto) 9.3 L (25.0-50.0) % [place] % (Auto) 8.3 (2.0-11.0) % Eos % (Auto) 0.0 (0.0-4.0) % Baso % (Auto) 0.1 L (0.2-1.2) % PT (9.6-11.4) SEC INR (2.0-3.5) D-Dimer, Quantitative (<=0.58) mg/LFEU Sodium 139 (136-145) mmol/L Potassium 4.2 (3.5-5.1) mmol/L Chloride 103 (98-107) mmol/L Carbon Dioxide 33 H (21-32) mmol/L Anion Gap 7.2 L (10-20) mmol/L BUN 20 H (7-18) mg/dL Creatinine 0.8 (0.55-1.02) mg/dL Est Cr Clr Drug Dosing 55.70 mL/min Estimated GFR (MDRD) > 60 Glucose 156 H (74-106) mg/dL POC Glucose 135 H (74-106) mg/dL Calcium 9.2 (8.5-10.1) mg/dL Med Orders - Current: Current Medications Albuterol/Ipratropium (Duoneb 3.0-0.5 Mg/3 Ml) 3 ml NEB Q4HRRT [facility] Last Admin: 08/17/18 07:08 Dose: 3 ml Albuterol/Ipratropium (Duoneb 3.0-0.5 Mg/3 Ml) 3 ml NEB Q2H PRN PRN Reason: Wheezing Last Admin: 08/16/18 21:04 Dose: 3 ml Aspirin (Halfprin) 81 mg PO DAILY [facility] Last Admin: 08/17/18 07:57 Dose: 81 mg Atorvastatin Calcium (Lipitor) 40 mg PO BEDTIME [facility] Last Admin: 08/16/18 19:47 Dose: 40 mg Azithromycin (Zithromax) 500 mg PO DAILY [facility] Carvedilol (Coreg) 12.5 mg PO BIDMEALS [facility] Last Admin: 08/17/18 07:57 Dose: 12.5 mg Clopidogrel Bisulfate (Plavix) 75 mg PO DAILY [facility] Last Admin: 08/17/18 07:57 Dose: 75 mg Enoxaparin Sodium (Lovenox) 30 mg SUBCUT BEDTIME [facility] Last Admin: 08/16/18 19:47 Dose: 30 mg Furosemide (Lasix) 20 mg PO DAILY@1200 [facility] Last Admin: 08/16/18 13:52 Dose: 20 mg Furosemide (Lasix) 40 mg PO DAILY@0800 [facility] Last Admin: 08/17/18 07:57 Dose: 40 mg Insulin Human Regular (Humulin R) 0 unit SUBCUT TIDMEALS [facility]; Protocol Last Admin: 08/17/18 07:58 Dose: Not Given Levothyroxine Sodium (Levothyroxine) 150 mcg PO ACBREAKFAST [facility] Last Admin: 08/17/18 06:27 Dose: 150 mcg Losartan Potassium (Cozaar) 25 mg PO DAILY [facility] Last Admin: 08/17/18 07:57 Dose: 25 mg Magnesium Hydroxide (Milk Of Magnesia) 30 ml PO BID PRN PRN Reason: Constipation Metformin HCl (Glucophage) 500 mg PO BIDMEALS [facility] Last Admin: 08/17/18 07:57 Dose: 500 mg Methylprednisolone Sodium Succinate (Solu-Medrol) 40 mg IVPUSH Q6H [facility] Nitroglycerin (Nitrostat) 0.4 mg SL Q5M PRN PRN Reason: Chest Pain Stiolto Respimat (InhalOwn Med) 2 puff PO DAILYRT [facility] Last Admin: 08/17/18 06:51 Dose: 2 puff Omeprazole (Omeprazole) 20 mg PO DAILY PRN PRN Reason: Heartburn Ondansetron HCl (Zofran Odt) 4 mg PO Q6H PRN PRN Reason: nausea, able to take PO Sodium Chloride (Saline Flush) 10 ml FLUSH ASDIRECTED PRN PRN Reason: Keep Vein Open Last Admin: 08/17/18 07:59 Dose: 10 ml Discontinued Medications Albuterol/Ipratropium (Duoneb 3.0-0.5 Mg/3 Ml) 3 ml NEB ONETIME ONE Stop: 08/16/18 02:49 Last Admin: 08/16/18 02:48 Dose: 3 ml Albuterol/Ipratropium (Duoneb 3.0-0.5 Mg/3 Ml) 3 ml NEB ONETIME ONE Stop: 08/16/18 02:58 Last Admin: 08/16/18 02:59 Dose: 3 ml Furosemide (Lasix) 40 mg IV ONETIME ONE Stop: 08/17/18 09:17 Sodium Chloride (Normal Saline) 1,000 mls @ 999 mls/hr IV ONETIME ONE Stop: 08/16/18 03:49 Last Admin: 08/16/18 02:58 Dose: 999 mls/hr Azithromycin 500 mg/ Sodium (Chloride) 250 mls @ 250 mls/hr IV DAILY [facility] Last Admin: 08/17/18 07:58 Dose: 250 mls/hr Sodium Chloride (Normal Saline) 1,000 mls @ 50 mls/hr IV ASDIRECTED [facility] Last Admin: 08/16/18 04:13 Dose: 50 mls/hr Iopamidol (Isovue-300 (61%)) 100 ml IVPUSH ONETIME ONE Stop: 08/16/18 09:43 Last Admin: 08/16/18 11:12 Dose: 100 ml Lisinopril (Prinivil) 5 mg PO DAILY [facility] Methylprednisolone Sodium Succinate (Solu-Medrol) 125 mg IVPUSH ONETIME ONE Stop: 08/16/18 02:49 Last Admin: 08/16/18 03:00 Dose: 125 mg Methylprednisolone Sodium Succinate (Solu-Medrol) 40 mg IVPUSH Q12H [facility] Last Admin: 08/16/18 16:41 Dose: 40 mg Methylprednisolone Sodium Succinate (Solu-Medrol) 40 mg IVPUSH DAILY [facility] Last Admin: 08/17/18 07:57 Dose: 40 mg - Exam Quality Assessment: Supplemental Oxygen General: Alert, Oriented Lungs: Decreased Breath Sounds, Wheezing Cardiovascular: Regular Rate, Regular Rhythm, Other (3+pedal edema) GI/Abdominal Exam: Normal Bowel Sounds, Soft, Non-Tender (Female) Exam: Deferred Extremities: Normal Inspection, Normal Range of Motion, Non-Tender, Pedal Edema Peripheral Pulses: 4+: Radial (R) Skin: Warm, Dry, Intact, Moist Neurological: No New Focal Deficit Psy/Mental Status: Alert, Normal Mood - Problem List Review Problem List Initiated/Reviewed/Updated: Yes - My Orders Last 24 Hours: My Active Orders 08/17/18 08:00 Insulin Regular, Human [HumuLIN R] See Protocol SUBCUT TIDMEALS 08/17/18 09:08 ABG [BLOOD GAS ARTERIAL] [BG] Routine 08/17/18 09:21 Magnesium Hydroxide [Milk of Magnesia] 30 ml PO BID PRN 08/17/18 09:30 methylPREDNISolone Sod Succ [Solu-MEDROL] 40 mg IVPUSH Q6H 08/18/18 08:00 Azithromycin [Zithromax] 500 mg PO DAILY - Assessment Assessment:: Acute COPD exacerbation - Plan Plan:: 72 yo female patient with a past medical history of COPD, HTN, high cholesterol , diastolic HF, was admitted last night for acute COPD exacerbation. CT scan of chest was negative for pneumonia or PE. Will stop IVF as patient is taking PO fluids well. She is tolerating her diet ok. Will need BM meds tomorrow if no BM by then. Continue with Azithromycin 500 mg daily. Change Solumedrol to daily. Continue to watch blood sugars. Recheck labs in AM. Patient may need status change to acute if wheezing does not improve. Will reassess this tomorrow. Repeat CBC, BMP, ABG and chest x-ray today. Begin sliding scale insulin. Increase solu medrol to 40mg every 6 hours. She has not had a BM so milk of mag was ordered. Will give a 1 time dose of lasix 40mg IV. Will DC the IV azithromycin and start oral. Will discuss transitioning pt. to acute with Russel Alvarado this AM.
[2018-08-17] MEDS: Furosemide 20 MG Tab PO SCH (12:57)
[2018-08-17] MEDS: methylPREDNISolone Sodium Succinate 40 MG/1 ML SDV IVPUSH SCH ×2 (14:27→20:13)
[2018-08-17] MEDS: atorvaSTATin 40 MG Tab PO SCH (20:12)
[2018-08-17] MEDS: Enoxaparin 30 MG/0.3 ML Syringe SUBCUT SCH (20:13)
[2018-08-18] MEDS: Albuterol/Ipratropium 3.0-0.5 MG/3 ML Neb Soln NEB PRN (01:27)
[2018-08-18] MEDS: methylPREDNISolone Sodium Succinate 40 MG/1 ML SDV IVPUSH SCH ×3 (01:27→16:45)
[2018-08-18] MEDS: Albuterol/Ipratropium 3.0-0.5 MG/3 ML Neb Soln NEB SCH ×6 (04:05→22:28)
[2018-08-18] MEDS: Levothyroxine 150 MCG Tab PO SCH (06:21)
[2018-08-18] MEDS: Carvedilol 12.5 MG Tab PO SCH ×2 (07:43→17:24)
[2018-08-18] MEDS: Losartan 25 MG Tab PO SCH (07:43)
[2018-08-18] MEDS: metFORMIN 500 MG Tab PO SCH ×2 (07:43→17:24)
[2018-08-18] MEDS: Furosemide 40 MG Tab PO SCH (07:44)
[2018-08-18] MEDS: Azithromycin 250 MG Tab PO SCH (07:44)
[2018-08-18] MEDS: Aspirin 81 MG Tab.EC PO SCH (07:44)
[2018-08-18] MEDS: STIOLTO RESPIMAT INHAL PO SCH (07:44)
[2018-08-18] MEDS: Clopidogrel 75 MG Tab PO SCH (07:44)
[2018-08-18] MEDS: Insulin Regular, Human 100 Units/ML 3 ML Vial SUBCUT SCH ×3 (07:45→17:24)
--- NOTE | 2018-08-18 09:53 | PCM.PN ---
- General Info Date of Service: 08/18/18 Admission Dx/Problem (Free Text): Patient was changed to acute status from obs yesterday. Apparent acute exacerbation of COPD. Baseline FEV1 58%, she does have 10% reversibility, quit smoking a number years ago but smoked for about 30 years. She started with cough and cold symptoms about two days prior to admission which was 3d ago. Still complains of some congestion sore throat cough and dyspnea. Afebrile. She might have a history of some diastolic dysfunction but BNP is been pretty normal in the past. In hosp on azithromycin and steroids and a bit more Lasix. She has a history of provoked DVT so ER did CTA chest. Negative for PE, no infiltrate, chronic obstructive lung changes seen. Ahs a history of coronary disease. She denies any angina currently. ABG showed what looked like a mild chronic respiratory acidosis pCO2 to 51. Objective: Afebrile blood pressure is normal. No gross dyspnea at rest. Oxygen saturation is 95% on 1.5 L nasal cannula. Heart regular rate and rhythm. She does have bilateral wheezing. She has 1+ pitting peripheral edema. Ext warm well perfused. Abdomen soft nontender. Assessment and plan: Cough, dyspnea, wheeze. Would appear consistent with viral exacerbation of her mild to moderate COPD with baseline FEV1 around 50%. She is still requiring some oxygen here. Continue to try to wean. Continue Solu-Medrol will change it to 3 times a day from 4 times a day. Continue azithromycin by don't see much for infectious etiology, we'll recheck CBC and CRP in the a.m. Requests something for congestion, flonase ordered. I don't see much for CHF contribution currently by films are exam, we'll check a BNP and troponin in a.m. given she does have some cardiac history. She is on aspirin and Plavix for her history of drug-eluting stent. She is also on low- dose Lovenox prophylaxis now given history of past provoked DVT. - Patient Data Vitals - Most Recent: Last Vital Signs Temp 36.5 C 08/18/18 09:45 Pulse 71 08/18/18 09:45 Resp 16 08/18/18 09:45 BP 140/61 08/18/18 09:45 Pulse Ox 91 L 08/18/18 09:45 Weight - Most Recent: 106.594 kg I&O - Last 24 Hours: Intake & Output 08/17/18 08/18/18 08/18/18 22:59 06:59 14:59 Intake Total 240 500 240 Output Total 750 1000 Balance -510 -500 240 Lab Results Last 24 Hours: Laboratory Results - last 24 hr 08/16/18 08/17/18 08/17/18 Range/Units 03:30 10:05 10:31 POC ABG pH Cancelled 7.426 ABG pH Cancelled POC ABG pCO2 Cancelled 51 H ABG pCO2 Cancelled POC ABG pO2 Cancelled 61 L ABG pO2 Cancelled POC ABG HCO3 Cancelled 34 H ABG HCO3 Cancelled POC ABG Total CO2 Cancelled 35 H ABG Total CO2 Cancelled POC ABG O2 Sat Cancelled 91 L ABG O2 Content Cancelled POC ABG Base Excess Cancelled 9 H ABG Base Excess Cancelled POC VBG pH Cancelled POC VBG pCO2 Cancelled POC VBG pO2 Cancelled POC VBG HCO3 Cancelled POC VBG Total CO2 Cancelled POC VBG Base Excess Cancelled A-a Gradient Cancelled O2 Delivery Device Cancelled Oxygen Flow Rate Cancelled POC O2 Flow Rate Cancelled FiO2 Cancelled POC FiO2 Cancelled 0.28 Blood Gas Comments Cancelled POC Glucose (74-106) mg/dL 08/17/18 08/17/18 08/18/18 Range/Units 11:06 17:32 06:40 POC ABG pH ABG pH POC ABG pCO2 ABG pCO2 POC ABG pO2 ABG pO2 POC ABG HCO3 ABG HCO3 POC ABG Total CO2 ABG Total CO2 POC ABG O2 Sat ABG O2 Content POC ABG Base Excess ABG Base Excess POC VBG pH POC VBG pCO2 POC VBG pO2 POC VBG HCO3 POC VBG Total CO2 POC VBG Base Excess A-a Gradient O2 Delivery Device Oxygen Flow Rate POC O2 Flow Rate FiO2 POC FiO2 Blood Gas Comments POC Glucose 145 H 207 H 211 H (74-106) mg/dL Med Orders - Current: Current Medications Albuterol/Ipratropium (Duoneb 3.0-0.5 Mg/3 Ml) 3 ml NEB Q4HRRT [facility] Last Admin: 08/18/18 06:22 Dose: 3 ml Albuterol/Ipratropium (Duoneb 3.0-0.5 Mg/3 Ml) 3 ml NEB Q2H PRN PRN Reason: Wheezing Last Admin: 08/18/18 01:27 Dose: 3 ml Aspirin (Halfprin) 81 mg PO DAILY [facility] Last Admin: 08/18/18 07:44 Dose: 81 mg Atorvastatin Calcium (Lipitor) 40 mg PO BEDTIME [facility] Last Admin: 08/17/18 20:12 Dose: 40 mg Azithromycin (Zithromax) 500 mg PO DAILY [facility] Last Admin: 08/18/18 07:44 Dose: 500 mg Carvedilol (Coreg) 12.5 mg PO BIDMEALS [facility] Last Admin: 08/18/18 07:43 Dose: 12.5 mg Clopidogrel Bisulfate (Plavix) 75 mg PO DAILY [facility] Last Admin: 08/18/18 07:44 Dose: 75 mg Enoxaparin Sodium (Lovenox) 30 mg SUBCUT BEDTIME [facility] Last Admin: 08/17/18 20:13 Dose: 30 mg Fluticasone Propionate (Flonase) 1 gm NASBOTH DAILY [facility] Furosemide (Lasix) 20 mg PO DAILY@1200 [facility] Last Admin: 08/17/18 12:57 Dose: Not Given Furosemide (Lasix) 40 mg PO DAILY@0800 [facility] Last Admin: 08/18/18 07:44 Dose: 40 mg Insulin Human Regular (Humulin R) 0 unit SUBCUT TIDMEALS [facility]; Protocol Last Admin: 08/18/18 07:45 Dose: 2 units Levothyroxine Sodium (Levothyroxine) 150 mcg PO ACBREAKFAST [facility] Last Admin: 08/18/18 06:21 Dose: 150 mcg Losartan Potassium (Cozaar) 25 mg PO DAILY [facility] Last Admin: 08/18/18 07:43 Dose: 25 mg Magnesium Hydroxide (Milk Of Magnesia) 30 ml PO BID PRN PRN Reason: Constipation Metformin HCl (Glucophage) 500 mg PO BIDMEALS [facility] Last Admin: 08/18/18 07:43 Dose: 500 mg Methylprednisolone Sodium Succinate (Solu-Medrol) 40 mg IVPUSH Q8H [facility] Nitroglycerin (Nitrostat) 0.4 mg SL Q5M PRN PRN Reason: Chest Pain Stiolto Respimat (InhalOwn Med) 2 puff PO DAILYRT [facility] Last Admin: 08/18/18 07:44 Dose: 2 puff Omeprazole (Omeprazole) 20 mg PO DAILY PRN PRN Reason: Heartburn Ondansetron HCl (Zofran Odt) 4 mg PO Q6H PRN PRN Reason: nausea, able to take PO Sodium Chloride (Saline Flush) 10 ml FLUSH ASDIRECTED PRN PRN Reason: Keep Vein Open Last Admin: 08/17/18 14:27 Dose: 10 ml Discontinued Medications Albuterol/Ipratropium (Duoneb 3.0-0.5 Mg/3 Ml) 3 ml NEB ONETIME ONE Stop: 08/16/18 02:49 Last Admin: 08/16/18 02:48 Dose: 3 ml Albuterol/Ipratropium (Duoneb 3.0-0.5 Mg/3 Ml) 3 ml NEB ONETIME ONE Stop: 08/16/18 02:58 Last Admin: 08/16/18 02:59 Dose: 3 ml Furosemide (Lasix) 40 mg IV ONETIME ONE Stop: 08/17/18 09:17 Last Admin: 08/17/18 09:41 Dose: 40 mg Sodium Chloride (Normal Saline) 1,000 mls @ 999 mls/hr IV ONETIME ONE Stop: 08/16/18 03:49 Last Admin: 08/16/18 02:58 Dose: 999 mls/hr Azithromycin 500 mg/ Sodium (Chloride) 250 mls @ 250 mls/hr IV DAILY [facility] Last Admin: 08/17/18 07:58 Dose: 250 mls/hr Sodium Chloride (Normal Saline) 1,000 mls @ 50 mls/hr IV ASDIRECTED [facility] Last Admin: 08/16/18 04:13 Dose: 50 mls/hr Iopamidol (Isovue-300 (61%)) 100 ml IVPUSH ONETIME ONE Stop: 08/16/18 09:43 Last Admin: 08/16/18 11:12 Dose: 100 ml Lisinopril (Prinivil) 5 mg PO DAILY [facility] Methylprednisolone Sodium Succinate (Solu-Medrol) 125 mg IVPUSH ONETIME ONE Stop: 08/16/18 02:49 Last Admin: 08/16/18 03:00 Dose: 125 mg Methylprednisolone Sodium Succinate (Solu-Medrol) 40 mg IVPUSH Q12H [facility] Last Admin: 08/16/18 16:41 Dose: 40 mg Methylprednisolone Sodium Succinate (Solu-Medrol) 40 mg IVPUSH DAILY [facility] Last Admin: 08/17/18 07:57 Dose: 40 mg Methylprednisolone Sodium Succinate (Solu-Medrol) 40 mg IVPUSH Q6H [facility] Last Admin: 08/18/18 07:45 Dose: 40 mg - Problem List Review Problem List Initiated/Reviewed/Updated: Yes - My Orders Last 24 Hours: My Active Orders 08/18/18 09:45 Fluticasone Propionate [Flonase] 1 gm NASBOTH DAILY methylPREDNISolone Sod Succ [Solu-MEDROL] 40 mg IVPUSH Q8H 08/19/18 05:11 BASIC METABOLIC PANEL,BMP [CHEM] AM CBC WITH AUTO DIFF [HEME] AM CRP [C-REACTIVE PROTEIN] [CHEM] AM TROPONIN I [CHEM] AM 08/19/18 07:42 PRO B-TYPE NATRIUR PEPT,BNPPRO [CHEM] Routine - Assessment Assessment:: Acute COPD exacerbation - Plan Plan:: 72 yo female patient with a past medical history of COPD, HTN, high cholesterol , diastolic HF, was admitted last night for acute COPD exacerbation. CT scan of chest was negative for pneumonia or PE. Will stop IVF as patient is taking PO fluids well. She is tolerating her diet ok. Will need BM meds tomorrow if no BM by then. Continue with Azithromycin 500 mg daily. Change Solumedrol to daily. Continue to watch blood sugars. Recheck labs in AM. Patient may need status change to acute if wheezing does not improve. Will reassess this tomorrow. Repeat CBC, BMP, ABG and chest x-ray today. Begin sliding scale insulin. Increase solu medrol to 40mg every 6 hours. She has not had a BM so milk of mag was ordered. Will give a 1 time dose of lasix 40mg IV. Will DC the IV azithromycin and start oral. Will discuss transitioning pt. to acute with Russel Alvarado this AM.
[2018-08-18] MEDS: Fluticasone Propionate Nasal Spray 16 GM Bottle NASBOTH SCH (10:26)
[2018-08-18] MEDS: Furosemide 20 MG Tab PO SCH (11:25)
[2018-08-18] MEDS: Sodium Chloride 0.9% 10 ML Syringe FLUSH PRN (19:37)
[2018-08-18] MEDS: atorvaSTATin 40 MG Tab PO SCH (19:38)
[2018-08-18] MEDS: Enoxaparin 40 MG/0.4 ML Syringe SUBCUT SCH (19:39)
[2018-08-19] MEDS: Sodium Chloride 0.9% 10 ML Syringe FLUSH PRN ×4 (00:05→19:48)
[2018-08-19] MEDS: methylPREDNISolone Sodium Succinate 40 MG/1 ML SDV IVPUSH SCH ×2 (00:06→08:00)
[2018-08-19] MEDS: Albuterol/Ipratropium 3.0-0.5 MG/3 ML Neb Soln NEB SCH ×6 (03:19→23:20)
[2018-08-19] MEDS: Levothyroxine 150 MCG Tab PO SCH (06:31)
[2018-08-19] MEDS: STIOLTO RESPIMAT INHAL PO SCH (06:33)
[2018-08-19 07:27] LABS: CHLORIDE,CL 100 mmol/L (98-107); SODIUM,NA 139 mmol/L (136-145)
[2018-08-19 07:28] LABS: ANION GAP 9.2 mmol/L (10-20)
[2018-08-19] MEDS: metFORMIN 500 MG Tab PO SCH (08:01)
[2018-08-19] MEDS: Clopidogrel 75 MG Tab PO SCH (08:01)
[2018-08-19] MEDS: Azithromycin 250 MG Tab PO SCH (08:01)
[2018-08-19] MEDS: Carvedilol 12.5 MG Tab PO SCH ×2 (08:01→18:07)
[2018-08-19] MEDS: Aspirin 81 MG Tab.EC PO SCH (08:01)
[2018-08-19] MEDS: Losartan 25 MG Tab PO SCH (08:01)
[2018-08-19] MEDS: Furosemide 40 MG Tab PO SCH (08:01)
[2018-08-19] MEDS: Insulin Regular, Human 100 Units/ML 3 ML Vial SUBCUT SCH ×3 (08:02→18:07)
[2018-08-19] MEDS: Fluticasone Propionate Nasal Spray 16 GM Bottle NASBOTH SCH (08:02)
[2018-08-19] MEDS: Furosemide 40 MG/4 ML VIAL IV SCH ×2 (08:55→15:45)
[2018-08-19] MEDS: guaiFENesin 600 MG Tab.ER PO SCH ×2 (08:56→19:41)
--- NOTE | 2018-08-19 10:30 | PCM.PN ---
- General Info Date of Service: 08/19/18 Subjective Update: Feeling minimally improved this morning. Weaned off O2 as of yesterday around noon. Still can barely ambulate in the halls without getting short of breath. Is not sure how she would move about her home as she has to go up a flight of stairs. Cough is improved but she has a sense that she has sputum in her chest that needs to be coughed out that she is unable to cough out. Does note some leg swelling, which is not typical for her; no worse than admission. No fever or chills overnight. Denies chest pain. - Review of Systems General: Reports: No Symptoms HEENT: Reports: No Symptoms Pulmonary: Reports: Shortness of Breath, Cough Cardiovascular: Reports: No Symptoms Gastrointestinal: Reports: No Symptoms Genitourinary: Reports: No Symptoms Musculoskeletal: Reports: No Symptoms Skin: Reports: No Symptoms Neurological: Reports: No Symptoms - Patient Data Vitals - Most Recent: Last Vital Signs Temp 36.4 C 08/19/18 10:00 Pulse 79 08/19/18 10:00 Resp 20 08/19/18 10:00 BP 124/58 L 08/19/18 10:00 Pulse Ox 91 L 08/19/18 10:00 Weight - Most Recent: 106.594 kg I&O - Last 24 Hours: Intake & Output 08/18/18 08/19/18 08/19/18 22:59 06:59 14:59 Intake Total 1200 680 320 Output Total 650 620 Balance 550 60 320 Lab Results Last 24 Hours: Laboratory Results - last 24 hr 08/17/18 08/18/18 08/18/18 Range/Units 20:53 11:24 17:23 WBC (4.0-10.0) x10^3/uL RBC (4.00-5.50) x10^6/uL Hgb (12.0-16.0) g/dL Hct (33.0-47.0) % MCV (78.0-93.0) fL MCH (26.0-32.0) pg MCHC (32.0-36.0) g/dL RDW Coeff of Osbaldo (10.0-15.0) % Plt Count (130-400) x10^3/uL Neut % (Auto) (50.0-80.0) % Lymph % (Auto) (25.0-50.0) % [place] % (Auto) (2.0-11.0) % Eos % (Auto) (0.0-4.0) % Baso % (Auto) (0.2-1.2) % Sodium (136-145) mmol/L Potassium (3.5-5.1) mmol/L Chloride (98-107) mmol/L Carbon Dioxide (21-32) mmol/L Anion Gap (10-20) mmol/L BUN (7-18) mg/dL Creatinine (0.55-1.02) mg/dL Est Cr Clr Drug Dosing mL/min Estimated GFR (MDRD) Glucose (74-106) mg/dL POC Glucose 260 H 157 H 205 H (74-106) mg/dL Calcium (8.5-10.1) mg/dL Troponin I (<=0.056) ng/mL C-Reactive Protein (<=0.9) mg/dL NT-Pro-B Natriuret Pep (<=125) pg/mL 08/18/18 08/19/18 08/19/18 Range/Units 19:46 06:30 06:30 WBC 6.9 (4.0-10.0) x10^3/uL RBC 4.72 (4.00-5.50) x10^6/uL Hgb 12.9 (12.0-16.0) g/dL Hct 39.0 (33.0-47.0) % MCV 82.6 (78.0-93.0) fL MCH 27.3 (26.0-32.0) pg MCHC 33.1 (32.0-36.0) g/dL RDW Coeff of Osbaldo 15.6 H (10.0-15.0) % Plt Count 256 (130-400) x10^3/uL Neut % (Auto) 86.4 H (50.0-80.0) % Lymph % (Auto) 9.5 L (25.0-50.0) % [place] % (Auto) 4.0 (2.0-11.0) % Eos % (Auto) 0.0 (0.0-4.0) % Baso % (Auto) 0.1 L (0.2-1.2) % Sodium 139 (136-145) mmol/L Potassium 4.2 (3.5-5.1) mmol/L Chloride 100 (98-107) mmol/L Carbon Dioxide 34 H (21-32) mmol/L Anion Gap 9.2 L (10-20) mmol/L BUN 28 H (7-18) mg/dL Creatinine 0.9 (0.55-1.02) mg/dL Est Cr Clr Drug Dosing 49.51 mL/min Estimated GFR (MDRD) > 60 Glucose 179 H (74-106) mg/dL POC Glucose 207 H (74-106) mg/dL Calcium 9.1 (8.5-10.1) mg/dL Troponin I 0.072 H* (<=0.056) ng/mL C-Reactive Protein < 0.2 (<=0.9) mg/dL NT-Pro-B Natriuret Pep (<=125) pg/mL 08/19/18 08/19/18 Range/Units 06:30 06:32 WBC (4.0-10.0) x10^3/uL RBC (4.00-5.50) x10^6/uL Hgb (12.0-16.0) g/dL Hct (33.0-47.0) % MCV (78.0-93.0) fL MCH (26.0-32.0) pg MCHC (32.0-36.0) g/dL RDW Coeff of Osbaldo (10.0-15.0) % Plt Count (130-400) x10^3/uL Neut % (Auto) (50.0-80.0) % Lymph % (Auto) (25.0-50.0) % [place] % (Auto) (2.0-11.0) % Eos % (Auto) (0.0-4.0) % Baso % (Auto) (0.2-1.2) % Sodium (136-145) mmol/L Potassium (3.5-5.1) mmol/L Chloride (98-107) mmol/L Carbon Dioxide (21-32) mmol/L Anion Gap (10-20) mmol/L BUN (7-18) mg/dL Creatinine (0.55-1.02) mg/dL Est Cr Clr Drug Dosing mL/min Estimated GFR (MDRD) Glucose (74-106) mg/dL POC Glucose 168 H (74-106) mg/dL Calcium (8.5-10.1) mg/dL Troponin I (<=0.056) ng/mL C-Reactive Protein (<=0.9) mg/dL NT-Pro-B Natriuret Pep 1124 H (<=125) pg/mL Med Orders - Current: Current Medications Albuterol/Ipratropium (Duoneb 3.0-0.5 Mg/3 Ml) 3 ml NEB Q4HRRT [facility] Last Admin: 08/19/18 06:54 Dose: 3 ml Albuterol/Ipratropium (Duoneb 3.0-0.5 Mg/3 Ml) 3 ml NEB Q2H PRN PRN Reason: Wheezing Last Admin: 08/18/18 01:27 Dose: 3 ml Aspirin (Halfprin) 81 mg PO DAILY [facility] Last Admin: 08/19/18 08:01 Dose: 81 mg Atorvastatin Calcium (Lipitor) 40 mg PO BEDTIME [facility] Last Admin: 08/18/18 19:38 Dose: 40 mg Azithromycin (Zithromax) 500 mg PO DAILY [facility] Last Admin: 08/19/18 08:01 Dose: 500 mg Carvedilol (Coreg) 12.5 mg PO BIDMEALS [facility] Last Admin: 08/19/18 08:01 Dose: 12.5 mg Clopidogrel Bisulfate (Plavix) 75 mg PO DAILY [facility] Last Admin: 08/19/18 08:01 Dose: 75 mg Enoxaparin Sodium (Lovenox) 40 mg SUBCUT BEDTIME [facility] Last Admin: 08/18/18 19:39 Dose: 40 mg Fluticasone Propionate (Flonase) 1 gm NASBOTH DAILY [facility] Last Admin: 08/19/18 08:02 Dose: 1 spray Furosemide (Lasix) 40 mg IV BIDDIURETIC [facility] Last Admin: 08/19/18 08:55 Dose: 40 mg Guaifenesin (Mucinex) 1,200 mg PO BID [facility] Last Admin: 08/19/18 08:56 Dose: 1,200 mg Insulin Human Regular (Humulin R) 0 unit SUBCUT TIDMEALS [facility]; Protocol Last Admin: 08/19/18 08:02 Dose: 1 units Levothyroxine Sodium (Levothyroxine) 150 mcg PO ACBREAKFAST [facility] Last Admin: 08/19/18 06:31 Dose: 150 mcg Losartan Potassium (Cozaar) 25 mg PO DAILY [facility] Last Admin: 08/19/18 08:01 Dose: 25 mg Magnesium Hydroxide (Milk Of Magnesia) 30 ml PO BID PRN PRN Reason: Constipation Last Admin: 08/19/18 08:09 Dose: 30 ml Metformin HCl (Glucophage) 500 mg PO BIDMEALS [facility] Last Admin: 08/19/18 08:01 Dose: 500 mg Methylprednisolone Sodium Succinate (Solu-Medrol) 40 mg IVPUSH Q8H [facility] Last Admin: 08/19/18 08:00 Dose: 40 mg Nitroglycerin (Nitrostat) 0.4 mg SL Q5M PRN PRN Reason: Chest Pain Stiolto Respimat (InhalOwn Med) 2 puff PO DAILYRT [facility] Last Admin: 08/19/18 06:33 Dose: 2 puff Omeprazole (Omeprazole) 20 mg PO DAILY PRN PRN Reason: Heartburn Ondansetron HCl (Zofran Odt) 4 mg PO Q6H PRN PRN Reason: nausea, able to take PO Sodium Chloride (Saline Flush) 10 ml FLUSH ASDIRECTED PRN PRN Reason: Keep Vein Open Last Admin: 08/19/18 00:11 Dose: 10 ml Discontinued Medications Albuterol/Ipratropium (Duoneb 3.0-0.5 Mg/3 Ml) 3 ml NEB ONETIME ONE Stop: 08/16/18 02:49 Last Admin: 08/16/18 02:48 Dose: 3 ml Albuterol/Ipratropium (Duoneb 3.0-0.5 Mg/3 Ml) 3 ml NEB ONETIME ONE Stop: 08/16/18 02:58 Last Admin: 08/16/18 02:59 Dose: 3 ml Enoxaparin Sodium (Lovenox) 30 mg SUBCUT BEDTIME [facility] Last Admin: 08/17/18 20:13 Dose: 30 mg Furosemide (Lasix) 20 mg PO DAILY@1200 [facility] Last Admin: 08/18/18 11:25 Dose: 20 mg Furosemide (Lasix) 40 mg PO DAILY@0800 [facility] Last Admin: 08/19/18 08:01 Dose: 40 mg Furosemide (Lasix) 40 mg IV ONETIME ONE Stop: 08/17/18 09:17 Last Admin: 08/17/18 09:41 Dose: 40 mg Sodium Chloride (Normal Saline) 1,000 mls @ 999 mls/hr IV ONETIME ONE Stop: 08/16/18 03:49 Last Admin: 08/16/18 02:58 Dose: 999 mls/hr Azithromycin 500 mg/ Sodium (Chloride) 250 mls @ 250 mls/hr IV DAILY [facility] Last Admin: 08/17/18 07:58 Dose: 250 mls/hr Sodium Chloride (Normal Saline) 1,000 mls @ 50 mls/hr IV ASDIRECTED [facility] Last Admin: 08/16/18 04:13 Dose: 50 mls/hr Iopamidol (Isovue-300 (61%)) 100 ml IVPUSH ONETIME ONE Stop: 08/16/18 09:43 Last Admin: 08/16/18 11:12 Dose: 100 ml Lisinopril (Prinivil) 5 mg PO DAILY [facility] Methylprednisolone Sodium Succinate (Solu-Medrol) 125 mg IVPUSH ONETIME ONE Stop: 08/16/18 02:49 Last Admin: 08/16/18 03:00 Dose: 125 mg Methylprednisolone Sodium Succinate (Solu-Medrol) 40 mg IVPUSH Q12H [facility] Last Admin: 08/16/18 16:41 Dose: 40 mg Methylprednisolone Sodium Succinate (Solu-Medrol) 40 mg IVPUSH DAILY [facility] Last Admin: 08/17/18 07:57 Dose: 40 mg Methylprednisolone Sodium Succinate (Solu-Medrol) 40 mg IVPUSH Q6H [facility] Last Admin: 08/18/18 07:45 Dose: 40 mg - Exam General: Alert, Cooperative, No Acute Distress HEENT: Pupils Equal, Pupils Reactive, Mucous Membr. Moist/[place] Neck: Supple, Trachea Midline, No Thyromegaly. No: Lymphadenopathy Lungs: Normal Respiratory Effort, Rhonchi, Wheezing Cardiovascular: Regular Rate, Regular Rhythm, No Murmurs GI/Abdominal Exam: Normal Bowel Sounds, Soft, Non-Tender, No Organomegaly, No Distention, No Mass Extremities: Normal Inspection, Non-Tender, Normal Capillary Refill, Pedal Edema (2+ bilateral) Peripheral Pulses: 2+: Radial (L), Radial (R) Skin: Warm, Dry, Intact - Problem List & Annotations (1) COPD exacerbation SNOMED Code(s): 324697912 Code(s): J44.1 - CHRONIC OBSTRUCTIVE PULMONARY DISEASE W (ACUTE) EXACERBATION Status: Acute Priority: High Current Visit: Yes Onset Date : ~08/15/18 (2) Acute respiratory failure with hypoxia SNOMED Code(s): 33518072, 965979281 Code(s): J96.01 - ACUTE RESPIRATORY FAILURE WITH HYPOXIA Status: Acute Current Visit: Yes (3) CHF exacerbation SNOMED Code(s): 69251623 Code(s): I50.9 - HEART FAILURE, UNSPECIFIED Status: Acute Current Visit: Yes (4) Diastolic CHF, chronic SNOMED Code(s): 930397242, 497568869 Code(s): I50.32 - CHRONIC DIASTOLIC (CONGESTIVE) HEART FAILURE Status: Chronic Current Visit: No (5) Elevated troponin SNOMED Code(s): 840369495, 051714043, 681098141 Code(s): R74.8 - ABNORMAL LEVELS OF OTHER SERUM ENZYMES Status: Acute Priority: Medium Current Visit: No Onset Date: ~10/20/17 (6) CAD (coronary artery disease) SNOMED Code(s): 69828055 Code(s): I25.10 - ATHSCL HEART DISEASE OF [place] CORONARY ARTERY W/O ANG PCTRS Status: Chronic Current Visit: No Onset Date: ~07/29/16 Qualifiers: Coronary Disease-Associated Artery/Lesion type: [place] artery [place] vs. transplanted heart: [place] heart Associated angina: without angina Qualified Code(s): I25.10 - Atherosclerotic heart disease of [place] coronary artery without angina pectoris Annotation/Comment:: NSTEMI, Cath LAD lesion with DAVE in Jul 2016 (7) HTN (hypertension), benign SNOMED Code(s): 64910442 Code(s): I10 - ESSENTIAL (PRIMARY) HYPERTENSION Status: Chronic Current Visit: No (8) Hypercholesterolemia SNOMED Code(s): 35508461 Code(s): E78.00 - PURE HYPERCHOLESTEROLEMIA, UNSPECIFIED Status: Chronic Current Visit: No (9) Type II diabetes mellitus SNOMED Code(s): 83659921 Code(s): E11.9 - TYPE 2 DIABETES MELLITUS WITHOUT COMPLICATIONS Status: Chronic Current Visit: No Qualifiers: Diabetes mellitus usp insulin use: without usp use Diabetes mellitus complication status: without complication Qualified Code(s): E11.9 - Type 2 diabetes mellitus without complications - Problem List Review Problem List Initiated/Reviewed/Updated: Yes - My Orders Last 24 Hours: My Active Orders 08/19/18 08:14 Furosemide [Lasix] 40 mg IV BIDDIURETIC 08/19/18 08:15 guaiFENesin [Mucinex] 1,200 mg PO BID 08/19/18 11:30 TROPONIN I [CHEM] Routine 08/20/18 05:11 BASIC METABOLIC PANEL,BMP [CHEM] Routine CBC WITH AUTO DIFF [HEME] Routine - Assessment Assessment:: 72 yo female admitted with dyspnea and hypoxia felt to be secondary to virus induced COPD exacerbation. Slowly improving. Weaned off O2 as of yesterday pm. Troponin and BNP both mildly elevated today. - Plan Plan:: #1 COPD exacerbation #2 Acute hypoxic respiratory failure, resolved - Slowly improving. - Off O2 but activities still significantly limited by dyspnea; thus, would recommend admission for at least 1 more night. - Will transition to PO prednisone today to make sure this transition goes ok. - Continue nebulizer treatments. - Will add mucinex to see if this helps thin secretions and allow her to cough out some of the sputum she is feeling. - Complete 5 days of azithromycin. #3 Acute on chronic diastolic CHF - BNP is elevated today; patient with lower extremity swelling. Wt is up from last wt in clinic. - Question contribution from CHF even though imaging has not been real convincing for this. - Will do IV lasix today and monitor for response with this. #4 Elevated troponin #5 CAD - Patient's symptoms are not consistent with an acute cardiac event. - Troponin only mildly elevated today. EKG was normal. - Will repeat troponin later this morning to trend. - Home medications continued. #6 Hypertension #7 Hyperlipidemia #8 Type II DM - Vitals and glucoses acceptable. - Home medications continued apart from metformin. - Patient is on SSI. Patient is improving slowly but is not stable for dismissal yet. She needs to be able to move about her home successfully. Will transition to PO steroids today and do some IV lasix. Recheck troponin later this morning. No other changes. She will remain on acute another night - hopefully she will improve enough to dismiss home tomorrow. Code status is full - was discussed with patient on admission. Lovenox for VTE prophylaxis.
[2018-08-19] MEDS: atorvaSTATin 40 MG Tab PO SCH (19:40)
[2018-08-19] MEDS: Enoxaparin 40 MG/0.4 ML Syringe SUBCUT SCH (19:44)
[2018-08-20] MEDS: Albuterol/Ipratropium 3.0-0.5 MG/3 ML Neb Soln NEB SCH ×3 (03:54→10:51)
[2018-08-20 06:41] LABS: CHLORIDE,CL 101 mmol/L (98-107); SODIUM,NA 138 mmol/L (136-145)
[2018-08-20 06:44] LABS: ANION GAP 4.1 mmol/L (10-20)
[2018-08-20] MEDS: Levothyroxine 150 MCG Tab PO SCH (06:50)
[2018-08-20] MEDS: STIOLTO RESPIMAT INHAL PO SCH (07:04)
[2018-08-20] MEDS: Aspirin 81 MG Tab.EC PO SCH (07:46)
[2018-08-20] MEDS: Carvedilol 12.5 MG Tab PO SCH (07:46)
[2018-08-20] MEDS: guaiFENesin 600 MG Tab.ER PO SCH (07:46)
[2018-08-20] MEDS: Clopidogrel 75 MG Tab PO SCH (07:46)
[2018-08-20] MEDS: Azithromycin 250 MG Tab PO SCH (07:46)
[2018-08-20] MEDS: Losartan 25 MG Tab PO SCH (07:46)
[2018-08-20] MEDS: Fluticasone Propionate Nasal Spray 16 GM Bottle NASBOTH SCH (07:47)
[2018-08-20] MEDS: Insulin Regular, Human 100 Units/ML 3 ML Vial SUBCUT SCH ×2 (07:47→11:41)
[2018-08-20] MEDS ORDERED: predniSONE 20 MG Tab PO SCH (08:00)
[2018-08-20] MEDS ORDERED: Furosemide 40 MG Tab PO SCH (08:22)
--- NOTE | 2018-08-20 08:28 | PCM.DCSUM1 ---
Discharge Summary - Hospital Course Brief History: Ms. Milner is a 72 yo female who was admitted with a COPD exacerbation after presenting to the emergency room with cough and shortness of breath. - Discharge Data Discharge Date: 08/20/18 Discharge Disposition: Home, Self-Care 01 Condition: Good - Discharge Diagnosis/Problem(s) (1) COPD exacerbation SNOMED Code(s): 552601593 ICD Code: J44.1 - CHRONIC OBSTRUCTIVE PULMONARY DISEASE W (ACUTE) EXACERBATION Status: Acute Priority: High Current Visit: Yes Onset Date : ~08/15/18 (2) Acute respiratory failure with hypoxia SNOMED Code(s): 23133947, 855469601 ICD Code: J96.01 - ACUTE RESPIRATORY FAILURE WITH HYPOXIA Status: Acute Current Visit: Yes (3) CHF exacerbation SNOMED Code(s): 69782989 ICD Code: I50.9 - HEART FAILURE, UNSPECIFIED Status: Acute Current Visit : Yes (4) Diastolic CHF, chronic SNOMED Code(s): 887110863, 974869253 ICD Code: I50.32 - CHRONIC DIASTOLIC (CONGESTIVE) HEART FAILURE Status: Chronic Current Visit: No (5) Elevated troponin SNOMED Code(s): 520728663, 947330271, 334017090 ICD Code: R74.8 - ABNORMAL LEVELS OF OTHER SERUM ENZYMES Status: Acute Priority: Medium Current Visit: No Onset Date: ~10/20/17 (6) CAD (coronary artery disease) SNOMED Code(s): 66753172 ICD Code: I25.10 - ATHSCL HEART DISEASE OF [place] CORONARY ARTERY W/O ANG PCTRS Status: Chronic Current Visit: No Onset Date: ~07/29/16 Problem Details: NSTEMI, Cath LAD lesion with DAVE in Jul 2016 Qualifiers: Coronary Disease-Associated Artery/Lesion type: [place] artery [place] vs. transplanted heart: [place] heart Associated angina: without angina Qualified Code(s): I25.10 - Atherosclerotic heart disease of [place] coronary artery without angina pectoris (7) HTN (hypertension), benign SNOMED Code(s): 28389414 ICD Code: I10 - ESSENTIAL (PRIMARY) HYPERTENSION Status: Chronic Current Visit: No (8) Hypercholesterolemia SNOMED Code(s): 78711998 ICD Code: E78.00 - PURE HYPERCHOLESTEROLEMIA, UNSPECIFIED Status: Chronic Current Visit: No (9) Type II diabetes mellitus SNOMED Code(s): 61044153 ICD Code: E11.9 - TYPE 2 DIABETES MELLITUS WITHOUT COMPLICATIONS Status: Chronic Current Visit: No Qualifiers: Diabetes mellitus snf insulin use: without watermelon inspector use Diabetes mellitus complication status: without complication Qualified Code(s): E11.9 - Type 2 diabetes mellitus without complications - Patient Summary/Data Operative Procedure(s) Performed: none Complications: none Consults: Consultations 08/16/18 03:29 Respiratory Care Assess and Treatment [CONS] Routine Labs Pending at D/C: none Recommended Follow-up Testing/Procedures: none Planned Operative Procedure(s) after DC: none Hospital Course: Patient was evaluated in the ER to exclude other causes of her symptoms. CT PE was negative for PE or any infiltrates. She was admitted under observation and treated with IV steroids and azithromycin. She was also requiring oxygen to maintain her saturations >90. Although she was very slowly improving, she was not prepared for dismissal by the end of her observation stay and was transitioned to acute instead. She was able to be weaned off the oxygen 2 days ago but was still having significant shortness of breath. Given her slow improvement with appropriate interventions, further evaluation with a BNP and troponin was done. Her BNP came back elevated, as did her troponin. Her troponin was trended and stable. Yesterday, she was given 2 doses of IV lasix with good resulting diuresis. She was transitioned to oral prednisone yesterday without incident and completed a 5 day course of azithromycin today. She had a noticeable improvement after this diuresis and is tolerating activity much better today. She is feeling ready for dismissal home. Her home medications were continued apart from holding her metformin yesterday. Glucoses and vital signs have been stable. She is medically stable for dismissal and will follow- up with her PCP next week. - Patient Instructions Diet: Usual Diet as Tolerated Activity: As Tolerated Driving: May Drive Today Showering/Bathing: May Shower - Discharge Plan *PRESCRIPTION DRUG MONITORING PROGRAM REVIEWED*: Not Applicable *COPY OF PRESCRIPTION DRUG MONITORING REPORT IN PATIENT MARIAH: Not Applicable Prescriptions/Med Rec: Albuterol/Ipratropium [DuoNeb 3.0-0.5 MG/3 ML] 3 ml NEB Q4H PRN #25 neb PRN Reason: shortness of breath, wheezing predniSONE 40 mg PO WITHBREAKFAST #10 tablet Home Medications: Home Meds Albuterol Sulfate [Albuterol Sulfate HFA] 2 puff INH Q4H PRN 08/11/14 [History] Aspirin [Halfprin] 81 mg PO DAILY 08/11/14 [History] Cyclobenzaprine [Flexeril] 5 - 10 mg PO TID PRN 08/11/14 [History] Rosuvastatin [Crestor] 10 mg PO DAILY 08/11/14 [History] Carvedilol [Coreg] 12.5 mg PO BIDMEALS 08/05/16 [History] Nitroglycerin [Nitrostat] 0.4 mg SL Q5M PRN 08/05/16 [History] metFORMIN [Glucophage] 500 mg PO BIDMEALS 08/05/16 [History] Cetirizine [ZyrTEC] 10 mg PO DAILY 10/20/17 [History] Omeprazole 20 mg PO DAILY PRN 10/20/17 [History] Tiotropium Br/Olodaterol HCl [Stiolto Respimat Inhal [place]] 2 puff PO DAILY [History] Triamcinolone Acetonide [Nasacort] 1 spray NASBOTH DAILY PRN 10/20/17 [History] Clopidogrel [Plavix] 75 mg PO DAILY 08/16/18 [History] Levothyroxine 150 mcg PO ACBREAKFAST 08/16/18 [History] Losartan [Cozaar] 25 mg PO DAILY 08/16/18 [History] Albuterol/Ipratropium [DuoNeb 3.0-0.5 MG/3 ML] 3 ml NEB Q4H PRN #25 neb [Rx] Furosemide [Lasix] 40 mg PO BIDDIURETIC tablet 08/20/18 [Rx] guaiFENesin [Mucinex] 1,200 mg PO BID tab.er 08/20/18 [Rx] predniSONE 40 mg PO WITHBREAKFAST #10 tablet 08/20/18 [Rx] Patient Handouts: Chronic Obstructive Pulmonary Disease Exacerbation, Easy-to- Read, Hypoxia, Methylprednisolone Solution for Injection, Acute Bronchitis, Adult, [id number] Referrals: PCP,Unobtain [Ordering Only Provider] - - Discharge Summary/Plan Comment DC Time >30 min.: No - General Info Date of Service: 08/20/18 Subjective Update: Feeling much better this morning. Slept ok. Has been up walking in the halls without too much difficulty. Cough is still not productive but she can feel that the sputum is loosening up. No fever or chills. Shortness of breath improved; no chest pain. - Review of Systems General: Reports: No Symptoms HEENT: Reports: No Symptoms Pulmonary: Reports: Shortness of Breath, Cough Cardiovascular: Reports: No Symptoms Gastrointestinal: Reports: No Symptoms Genitourinary: Reports: No Symptoms Musculoskeletal: Reports: No Symptoms Skin: Reports: No Symptoms - Patient Data Vitals - Most Recent: Last Vital Signs Temp 36.4 C 08/20/18 05:24 Pulse 70 08/20/18 05:24 Resp 20 08/20/18 05:24 BP 138/68 08/20/18 05:24 Pulse Ox 93 L 08/20/18 07:07 Weight - Most Recent: 106.594 kg I&O - Last 24 hours: Intake & Output 08/19/18 08/20/18 08/20/18 22:59 06:59 14:59 Intake Total 800 360 Output Total 3000 1050 Balance -3000 -250 360 Lab Results - Last 24 hrs: Laboratory Results - last 24 hr 08/19/18 08/19/18 08/19/18 Range/Units 11:07 11:32 17:22 WBC (4.0-10.0) x10^3/uL RBC (4.00-5.50) x10^6/uL Hgb (12.0-16.0) g/dL Hct (33.0-47.0) % MCV (78.0-93.0) fL MCH (26.0-32.0) pg MCHC (32.0-36.0) g/dL RDW Coeff of Osbaldo (10.0-15.0) % Plt Count (130-400) x10^3/uL Neut % (Auto) (50.0-80.0) % Lymph % (Auto) (25.0-50.0) % [place] % (Auto) (2.0-11.0) % Eos % (Auto) (0.0-4.0) % Baso % (Auto) (0.2-1.2) % Sodium (136-145) mmol/L Potassium (3.5-5.1) mmol/L Chloride (98-107) mmol/L Carbon Dioxide (21-32) mmol/L Anion Gap (10-20) mmol/L BUN (7-18) mg/dL Creatinine (0.55-1.02) mg/dL Est Cr Clr Drug Dosing mL/min Estimated GFR (MDRD) Glucose (74-106) mg/dL POC Glucose 121 H 179 H (74-106) mg/dL Calcium (8.5-10.1) mg/dL Troponin I 0.063 H* (<=0.056) ng/mL 08/19/18 08/20/18 08/20/18 Range/Units 19:39 06:15 06:15 WBC 8.6 (4.0-10.0) x10^3/uL RBC 4.92 (4.00-5.50) x10^6/uL Hgb 13.5 (12.0-16.0) g/dL Hct 41.1 (33.0-47.0) % MCV 83.5 (78.0-93.0) fL MCH 27.4 (26.0-32.0) pg MCHC 32.8 (32.0-36.0) g/dL RDW Coeff of [place]baldo 15.9 H (10.0-15.0) % Plt Count 243 (130-400) x10^3/uL Neut % (Auto) 63.0 (50.0-80.0) % Lymph % (Auto) 26.2 (25.0-50.0) % [place] % (Auto) 10.4 (2.0-11.0) % Eos % (Auto) 0.3 (0.0-4.0) % Baso % (Auto) 0.1 L (0.2-1.2) % Sodium 138 (136-145) mmol/L Potassium 4.1 (3.5-5.1) mmol/L Chloride 101 (98-107) mmol/L Carbon Dioxide 37 H (21-32) mmol/L Anion Gap 4.1 L (10-20) mmol/L BUN 35 H (7-18) mg/dL Creatinine 0.9 (0.55-1.02) mg/dL Est Cr Clr Drug Dosing 49.51 mL/min Estimated GFR (MDRD) > 60 Glucose 121 H (74-106) mg/dL POC Glucose 176 H (74-106) mg/dL Calcium 8.6 (8.5-10.1) mg/dL Troponin I (<=0.056) ng/mL 08/20/18 Range/Units 06:49 WBC (4.0-10.0) x10^3/uL RBC (4.00-5.50) x10^6/uL Hgb (12.0-16.0) g/dL Hct (33.0-47.0) % MCV (78.0-93.0) fL MCH (26.0-32.0) pg MCHC (32.0-36.0) g/dL RDW Coeff of [place] (10.0-15.0) % Plt Count (130-400) x10^3/uL Neut % (Auto) (50.0-80.0) % Lymph % (Auto) (25.0-50.0) % [place] % (Auto) (2.0-11.0) % Eos % (Auto) (0.0-4.0) % Baso % (Auto) (0.2-1.2) % Sodium (136-145) mmol/L Potassium (3.5-5.1) mmol/L Chloride (98-107) mmol/L Carbon Dioxide (21-32) mmol/L Anion Gap (10-20) mmol/L BUN (7-18) mg/dL Creatinine (0.55-1.02) mg/dL Est Cr Clr Drug Dosing mL/min Estimated GFR (MDRD) Glucose (74-106) mg/dL POC Glucose 112 H (74-106) mg/dL Calcium (8.5-10.1) mg/dL Troponin I (<=0.056) ng/mL Med Orders - Current: Current Medications Albuterol/Ipratropium (Duoneb 3.0-0.5 Mg/3 Ml) 3 ml NEB Q4HRRT [facility] Last Admin: 08/20/18 07:06 Dose: 3 ml Albuterol/Ipratropium (Duoneb 3.0-0.5 Mg/3 Ml) 3 ml NEB Q2H PRN PRN Reason: Wheezing Last Admin: 08/18/18 01:27 Dose: 3 ml Aspirin (Halfprin) 81 mg PO DAILY [facility] Last Admin: 08/20/18 07:46 Dose: 81 mg Atorvastatin Calcium (Lipitor) 40 mg PO BEDTIME [facility] Last Admin: 08/19/18 19:40 Dose: 40 mg Azithromycin (Zithromax) 500 mg PO DAILY [facility] Last Admin: 08/20/18 07:46 Dose: 500 mg Carvedilol (Coreg) 12.5 mg PO BIDMEALS [facility] Last Admin: 08/20/18 07:46 Dose: 12.5 mg Clopidogrel Bisulfate (Plavix) 75 mg PO DAILY [facility] Last Admin: 08/20/18 07:46 Dose: 75 mg Enoxaparin Sodium (Lovenox) 40 mg SUBCUT BEDTIME [facility] Last Admin: 08/19/18 19:44 Dose: 40 mg Fluticasone Propionate (Flonase) 1 gm NASBOTH DAILY [facility] Last Admin: 08/20/18 07:47 Dose: 1 spray Guaifenesin (Mucinex) 1,200 mg PO BID [facility] Last Admin: 08/20/18 07:46 Dose: 1,200 mg Insulin Human Regular (Humulin R) 0 unit SUBCUT TIDMEALS [facility]; Protocol Last Admin: 08/20/18 07:47 Dose: Not Given Levothyroxine Sodium (Levothyroxine) 150 mcg PO ACBREAKFAST [facility] Last Admin: 08/20/18 06:50 Dose: 150 mcg Losartan Potassium (Cozaar) 25 mg PO DAILY [facility] Last Admin: 08/20/18 07:46 Dose: 25 mg Magnesium Hydroxide (Milk Of Magnesia) 30 ml PO BID PRN PRN Reason: Constipation Last Admin: 08/19/18 08:09 Dose: 30 ml Nitroglycerin (Nitrostat) 0.4 mg SL Q5M PRN PRN Reason: Chest Pain Stiolto Respimat (InhalOwn Med) 2 puff PO DAILYRT [facility] Last Admin: 08/20/18 07:04 Dose: 2 puff Omeprazole (Omeprazole) 20 mg PO DAILY PRN PRN Reason: Heartburn Ondansetron HCl (Zofran Odt) 4 mg PO Q6H PRN PRN Reason: nausea, able to take PO Prednisone (Prednisone) 40 mg PO WITHBREAKFAST [facility] Last Admin: 08/20/18 07:46 Dose: 40 mg Sodium Chloride (Saline Flush) 10 ml FLUSH ASDIRECTED PRN PRN Reason: Keep Vein Open Last Admin: 08/19/18 19:48 Dose: 10 ml Discontinued Medications Albuterol/Ipratropium (Duoneb 3.0-0.5 Mg/3 Ml) 3 ml NEB ONETIME ONE Stop: 08/16/18 02:49 Last Admin: 08/16/18 02:48 Dose: 3 ml Albuterol/Ipratropium (Duoneb 3.0-0.5 Mg/3 Ml) 3 ml NEB ONETIME ONE Stop: 08/16/18 02:58 Last Admin: 08/16/18 02:59 Dose: 3 ml Enoxaparin Sodium (Lovenox) 30 mg SUBCUT BEDTIME [facility] Last Admin: 08/17/18 20:13 Dose: 30 mg Furosemide (Lasix) 20 mg PO DAILY@1200 [facility] Last Admin: 08/18/18 11:25 Dose: 20 mg Furosemide (Lasix) 40 mg PO DAILY@0800 [facility] Last Admin: 08/19/18 08:01 Dose: 40 mg Furosemide (Lasix) 40 mg IV ONETIME ONE Stop: 08/17/18 09:17 Last Admin: 08/17/18 09:41 Dose: 40 mg Furosemide (Lasix) 40 mg IV BIDDIURETIC [facility] Last Admin: 08/19/18 15:45 Dose: 40 mg Sodium Chloride (Normal Saline) 1,000 mls @ 999 mls/hr IV ONETIME ONE Stop: 08/16/18 03:49 Last Admin: 08/16/18 02:58 Dose: 999 mls/hr Azithromycin 500 mg/ Sodium (Chloride) 250 mls @ 250 mls/hr IV DAILY [facility] Last Admin: 08/17/18 07:58 Dose: 250 mls/hr Sodium Chloride (Normal Saline) 1,000 mls @ 50 mls/hr IV ASDIRECTED [facility] Last Admin: 08/16/18 04:13 Dose: 50 mls/hr Iopamidol (Isovue-300 (61%)) 100 ml IVPUSH ONETIME ONE Stop: 08/16/18 09:43 Last Admin: 08/16/18 11:12 Dose: 100 ml Lisinopril (Prinivil) 5 mg PO DAILY [facility] Metformin HCl (Glucophage) 500 mg PO BIDMEALS [facility] Last Admin: 08/19/18 08:01 Dose: 500 mg Methylprednisolone Sodium Succinate (Solu-Medrol) 125 mg IVPUSH ONETIME ONE Stop: 08/16/18 02:49 Last Admin: 08/16/18 03:00 Dose: 125 mg Methylprednisolone Sodium Succinate (Solu-Medrol) 40 mg IVPUSH Q12H [facility] Last Admin: 08/16/18 16:41 Dose: 40 mg Methylprednisolone Sodium Succinate (Solu-Medrol) 40 mg IVPUSH DAILY [facility] Last Admin: 08/17/18 07:57 Dose: 40 mg Methylprednisolone Sodium Succinate (Solu-Medrol) 40 mg IVPUSH Q6H [facility] Last Admin: 08/18/18 07:45 Dose: 40 mg Methylprednisolone Sodium Succinate (Solu-Medrol) 40 mg IVPUSH Q8H [facility] Last Admin: 08/19/18 08:00 Dose: 40 mg - Exam General: Reports: Alert, Cooperative, No Acute Distress HEENT: Reports: Pupils Equal, Pupils Reactive, Mucous Membr. Moist/[place] Neck: Reports: Supple, Trachea Midline, No Thyromegaly. Denies: Lymphadenopathy Lungs: Reports: Normal Respiratory Effort, Crackles (lower lobes only), Wheezing (lower lobes only) Cardiovascular: Reports: Regular Rate, Regular Rhythm, No Murmurs GI/Abdominal Exam: Normal Bowel Sounds, Soft, Non-Tender, No Organomegaly, No Distention, No Mass Extremities: Non-Tender, No Pedal Edema, Normal Capillary Refill Skin: Reports: Warm, Dry, Intact
[2018-08-20 10:19] VITALS: BP 144/65
== END 2018-08-20 12:05 | disposition home or self-care (01) | DRG 190 ==
LOC: VM.ED 02:41 → VM.MS 03:14 → OBSVTOIN 08-17 13:01
PROVIDERS: ADMIT Family Medicine; ATTEND Family Medicine
DX: J44.1 Chronic obstructive pulmonary disease with (acute) exacerbation (principal); I10 Essential (primary) hypertension; J96.01 Acute respiratory failure with hypoxia; K21.9 Gastro-esophageal reflux disease without esophagitis; G89.29 Other chronic pain; I50.33 Acute on chronic diastolic (congestive) heart failure; M54.9 Dorsalgia, unspecified; M19.90 Unspecified osteoarthritis, unspecified site; R74.8 Abnormal levels of other serum enzymes; Z79.82 Long term (current) use of aspirin; I25.10 Atherosclerotic heart disease of native coronary artery without angina pectoris; I11.0 Hypertensive heart disease with heart failure; E78.00 Pure hypercholesterolemia, unspecified; E11.9 Type 2 diabetes mellitus without complications; E78.5 Hyperlipidemia, unspecified; Z87.891 Personal history of nicotine dependence; Z79.84 Long term (current) use of oral hypoglycemic drugs; Z79.899 Other long term (current) drug therapy; Z88.0 Allergy status to penicillin; Z79.52 Long term (current) use of systemic steroids; Z95.5 Presence of coronary angioplasty implant and graft
CPT/HCPCS: 36415; 36600; 71045; 71275; 80048; 82803; 82962; 83735; 83880; 84484; 85025; 85379; 85610; 86140; 93005; 94640; 94760; 96361; 96365; 96372; 96374; 96375; 96376; 99285; A9270-GY; G0378; J0456; J1650; J1815-GY; J1940; J2920; J2930; J7030; J7050; J7620-GY; Q9967

== ENCOUNTER 2020-12-30 20:49 | Emergency (ER) | payer MEDICARE, OTHER ==
[2020-12-30] MEDS ORDERED: Sodium Chloride 0.9% 10 ML Syringe FLUSH PRN (21:16)
--- NOTE | 2020-12-30 21:23 | EDM.PDOC ---
ED HPI GENERAL MEDICAL PROBLEM - General Stated Complaint: DIZZY Time Seen by Provider: 12/30/20 21:09 Source of Information: Reports: Patient - History of Present Illness INITIAL COMMENTS - FREE TEXT/NARRATIVE: Yana is a 75 y/o female who comes to the ER with complaints of dizziness that started while she was standing up tying a quilt. She reports getting a bit light-headed. She felt fine before about 8 pm tonight. She did have similar sx prior to her stent placement 3-4 years ago. She denies any chest pain or dyspnea. The dizziness does come and go with movement. No fevers or any other respiratory sx. Patient reports that she received her first COVID injection yesterday. - Related Data Allergies Allergy/AdvReac Type Severity Reaction Status Date / Time Penicillins Allergy Severe Hives Verified 12/30/20 22:18 Home Meds: Home Meds Albuterol Sulfate [Albuterol Sulfate HFA] 2 puff INH Q4H PRN 08/11/14 [History] Aspirin [Halfprin] 81 mg PO DAILY 08/11/14 [History] Cyclobenzaprine [Flexeril] 5 - 10 mg PO TID PRN 08/11/14 [History] Rosuvastatin [Crestor] 10 mg PO DAILY 08/11/14 [History] Nitroglycerin [Nitrostat] 0.4 mg SL Q5M PRN 08/05/16 [History] carvediloL [Coreg] 12.5 mg PO BIDMEALS 08/05/16 [History] metFORMIN [Glucophage] 500 mg PO BIDMEALS 08/05/16 [History] Cetirizine [ZyrTEC] 10 mg PO DAILY 10/20/17 [History] Omeprazole 20 mg PO DAILY PRN 10/20/17 [History] Tiotropium Br/Olodaterol HCl [Stiolto Respimat Inhal [place]] 2 puff PO DAILY 10/20/17 [History] Triamcinolone Acetonide [Nasacort] 1 spray NASBOTH DAILY PRN 10/20/17 [History] Levothyroxine 150 mcg PO ACBREAKFAST 08/16/18 [History] Losartan [Cozaar] 25 mg PO DAILY 08/16/18 [History] Albuterol/Ipratropium [DuoNeb 3.0-0.5 MG/3 ML] 3 ml NEB Q4H PRN #25 neb 08/20/18 [Rx] Furosemide [Lasix] 40 mg PO BIDDIURETIC tablet 08/20/18 [Rx] guaiFENesin [Mucinex] 1,200 mg PO BID tab.er 08/20/18 [Rx] Past Medical History HEENT History: Reports: Other (See Below) Other HEENT History: allergic rhinitis. presbyopia. hypermetropia. blepharitis Cardiovascular History: Reports: Hypertension, Stents Other Cardiovascular History: tachycardia, varicose veins Respiratory History: Reports: COPD Gastrointestinal History: Reports: GERD Other Gastrointestinal History: hx colon polyps Genitourinary History: Reports: Other (See Below) Other Genitourinary History: stress incont. bladder surgery(urethropexy) Musculoskeletal History: Reports: Back Pain, Chronic, Osteoarthritis Other Musculoskeletal History: carpal tunnel suyndrome Endocrine/Metabolic History: Reports: Diabetes, Type II Other Dermatologic History: rosacea - Infectious Disease History Infectious Disease History: Reports: Chicken Pox, Measles, Pertussis (Whooping Cough), Rubella - Past Surgical History HEENT Surgical History: Reports: Adenoidectomy, Cataract Surgery, Tonsillectomy Other Female Surgeries/Procedures: bladder sx Endocrine Surgical History: Reports: Other (See Below) Other Endocrine Surgeries/Procedures: thyroid nodule Social & Family History - Family History Family Medical History: No Pertinent Family History - Caffeine Use Caffeine Use: Reports: Coffee Review of Systems - Review of Systems Review Of Systems: See Below Constitutional: Reports: No Symptoms Eyes: Reports: No Symptoms Ears: Reports: Dizziness Nose: Reports: No Symptoms Mouth/Throat: Reports: No Symptoms Respiratory: Reports: No Symptoms Cardiovascular: Reports: No Symptoms GI/Abdominal: Reports: No Symptoms Genitourinary: Reports: No Symptoms Musculoskeletal: Reports: No Symptoms Skin: Reports: No Symptoms Neurological: Reports: Dizziness Psychiatric: Reports: No Symptoms ED EXAM, GENERAL - Physical Exam Exam: See Below General Appearance: Alert, WD/WN, No Apparent Distress (Elderly female.) Eye Exam: Bilateral Eye: Nystagmus (None noted), PERRL Ears: Normal External Exam, Normal Canal, Hearing Grossly Normal Ear Exam: Right Ear: TM normal (Left TM note rupture in ear drum, but healed and stable) Nose: Normal Inspection, Normal Mucosa Throat/Mouth: Normal Inspection, Normal Lips, Normal Teeth, Normal Voice, No Airway Compromise Head: Atraumatic, Normocephalic Neck: Normal Inspection, Supple Respiratory/Chest: No Respiratory Distress, Lungs Clear, Chest Non-Tender Cardiovascular: Normal Peripheral Pulses, Regular Rate, Rhythm GI/Abdominal: Normal Bowel Sounds, Soft (Female) Exam: Deferred Rectal (Female) Exam: Deferred Back Exam: Normal Inspection Extremities: Pedal Edema (2+ pedal edema in bilateral ankles in feet, has compression socks on) Neurological: Alert, Oriented, CN II-XII Intact, Normal Cognition Psychiatric: Normal Affect, Normal Mood Skin Exam: Warm, Dry, Intact, Normal Color Lymphatic: No Adenopathy #1 Interpretation EKG Date: 12/30/20 Time: 20:57 Rhythm: NSR Rate (Beats/Min): 77 [place]: Normal P-Wave: Enlarged QRS: Normal ST-T: Normal QT: Normal Course - Vital Signs Text/Narrative:: 2108 The patient was seen by the [facility] [employer] COORDINATOR. EKG done. Labs ordered. Orthostatic vitals ordered as movement seems to increase her dizziness. 2214 Notified by lab of elevated Troponin=0.082, denies chest pain at this time dizziness continues. ASA 3224mg po given. Contacted [facility] and case presented to ER physician. 2249 Dr Mir/Dr Herring the hospitalists project controls specialist at [facility] accepted the patient for transfer. Patient remained stable until departing the ER with [facility]. Last Recorded V/S: Last Vital Signs Temp 36.5 C 12/30/20 20:49 Pulse 76 12/30/20 20:49 Resp 16 12/30/20 20:49 BP 158/62 H 12/30/20 20:49 Pulse Ox 98 12/30/20 20:49 - Orders/Labs/Meds Orders: Active Orders 24 hr Category Date Time Status EKG Documentation Completion [RC] STAT Care 12/30/20 21:16 Active Orthostatic Vital Signs [RC] ASDIRECTED Care 12/30/20 21:17 Active Aspirin Med 12/30/20 22:18 Once 324 mg PO ONETIME ONE Sodium Chloride 0.9% [Saline Flush] Med 12/30/20 21:16 Active 10 ml FLUSH ASDIRECTED PRN Saline Lock Insert [OM.PC] Stat Oth 12/30/20 21:16 Ordered Medication Orders Aspirin (Aspirin) 324 mg PO ONETIME ONE Stop: 12/30/20 22:19 Sodium Chloride (Saline Flush) 10 ml FLUSH ASDIRECTED PRN PRN Reason: Keep Vein Open Labs: Laboratory Tests 12/30/20 12/30/20 12/30/20 Range/Units 21:30 21:30 21:53 WBC 6.2 (4.0-10.0) x10^3/uL RBC 4.44 (4.00-5.50) x10^6/uL Hgb 12.2 (12.0-16.0) g/dL Hct 37.2 (33.0-47.0) % MCV 83.8 (78.0-93.0) fL MCH 27.5 (26.0-32.0) pg MCHC 32.8 (32.0-36.0) g/dL RDW Coeff of [place]bal[place] 14.3 (10.0-15.0) % Plt Count 231 (130-400) x10^3/uL Neut % (Auto) 70.1 (50.0-80.0) % Lymph % (Auto) 18.1 L (25.0-50.0) % [place] % (Auto) 7.3 (2.0-11.0) % Eos % (Auto) 4.2 H (0.0-4.0) % Baso % (Auto) 0.3 (0.2-1.2) % Sodium 140 (136-145) mmol/L Potassium 4.2 (3.5-5.1) mmol/L Chloride 101 (98-107) mmol/L Carbon Dioxide 31 (21-32) mmol/L Anion Gap 12.2 (5-15) mmol/L BUN 18 (7-18) mg/dL Creatinine 0.9 (0.55-1.02) mg/dL Est Cr Clr Drug Dosing TNP Estimated GFR (MDRD) > 60 Glucose 174 H (74-106) mg/dL Calcium 8.9 (8.5-10.1) mg/dL Corrected Calcium 9.22 (8.5-10.1) mg/dL Magnesium 2.2 (1.8-2.4) mg/dL Total Bilirubin 0.4 (0.2-1.0) mg/dL AST 12 L (15-37) U/L ALT 21 (14-59) U/L Alkaline Phosphatase 65 (46-116) U/L Troponin I 0.082 H* (<=0.056) ng/mL C-Reactive Protein 1.3 H (<=0.9) mg/dL Total Protein 7.5 (6.4-8.2) g/dL Albumin 3.6 (3.4-5.0) g/dL Globulin 3.9 Albumin/Globulin Ratio 0.92 TSH, Ultra Sensitive 0.249 L (0.358-3.74) uIU/mL Urine Color Yellow (YELLOW) Urine Appearance Clear (CLEAR) Urine pH 6.0 (5.0-8.0) Ur Specific [place] 1.025 Urine Protein Trace H (NEGATIVE) mg/dL Urine Glucose (UA) Negative (NEGATIVE) mg/dL Urine Ketones Negative (NEGATIVE) mg/dL Urine Occult Blood Negative (NEGATIVE) Urine Nitrite Negative (NEGATIVE) Urine Bilirubin Negative (NEGATIVE) Urine Urobilinogen 1.0 (0.2) EU/dL Ur Leukocyte Esterase Negative (NEGATIVE) Urine RBC 0-5 (NOT SEEN) /HPF Urine WBC 0-5 (NOT SEEN) /HPF Ur Squamous Epith Cells Few H (NEGATIVE) /HPF Urine Bacteria Rare (NEGATIVE) /HPF Urine Mucus Not seen (NEGATIVE) /LPF Meds: Medications Generic Name Dose Route Start Last Admin Trade Name Freq PRN Reason Stop Dose Admin Aspirin 324 mg 12/30/20 22:18 Aspirin PO 12/30/20 22:19 ONETIME ONE Sodium Chloride 10 ml 12/30/20 21:16 Saline Flush FLUSH ASDIRECTED PRN Keep Vein Open Departure - Departure Time of Disposition: 22:56 Disposition: DC/Tfer to Acute Hospital 02 Clinical Impression: NSTEMI (non-ST elevated myocardial infarction), Dizziness Type II diabetes mellitus Qualifiers: Diabetes mellitus long goods drier insulin use: without long goods drier use Diabetes mellitus complication status: without complication Qualified Code(s): E11.9 - Type 2 diabetes mellitus without complications CAD (coronary artery disease) Qualifiers: Coronary Disease-Associated Artery/Lesion type: [place] artery [place] vs. transplanted heart: [place] heart Associated angina: without angina Qualified Code(s): I25.10 - Atherosclerotic heart disease of [place] coronary artery without angina pectoris - Discharge Information Forms: Interfacility Transfer EMTALA Additional Instructions: -Transfer to [facility] to ER via [facility] Sepsis Event Note (ED) - Focused Exam Vital Signs: Vital Signs Temp Pulse Resp BP Pulse Ox 12/30/20 20:49 36.5 C 76 16 158/62 H 98 - My Orders Last 24 Hours: My Active Orders 12/30/20 21:16 EKG Documentation Completion [RC] STAT Sodium Chloride 0.9% [Saline Flush] 10 ml FLUSH ASDIRECTED PRN Saline Lock Insert [OM.PC] Stat 12/30/20 21:17 Orthostatic Vital Signs [RC] ASDIRECTED 12/30/20 22:18 Aspirin 324 mg PO ONETIME ONE - Assessment/Plan Last 24 Hours: My Active Orders 12/30/20 21:16 EKG Documentation Completion [RC] STAT Sodium Chloride 0.9% [Saline Flush] 10 ml FLUSH ASDIRECTED PRN Saline Lock Insert [OM.PC] Stat 12/30/20 21:17 Orthostatic Vital Signs [RC] ASDIRECTED 12/30/20 22:18 Aspirin 324 mg PO ONETIME ONE
[2020-12-30 22:11] LABS: ANION GAP 12.2 mmol/L (5-15); CHLORIDE,CL 101 mmol/L (98-107); SODIUM,NA 140 mmol/L (136-145)
[2020-12-30] MEDS ORDERED: Aspirin 81 MG Tab.Chew PO ONE (22:18)
[2020-12-30 23:07] VITALS: BP 184/80; PULSE 68
== END 2020-12-30 23:30 | disposition short-term general hospital (02) ==
LOC: VM.ED 20:49
DX: I21.4 Non-ST elevation (NSTEMI) myocardial infarction (principal); E11.9 Type 2 diabetes mellitus without complications; I25.10 Atherosclerotic heart disease of native coronary artery without angina pectoris; I10 Essential (primary) hypertension; J44.9 Chronic obstructive pulmonary disease, unspecified; K21.9 Gastro-esophageal reflux disease without esophagitis; M19.90 Unspecified osteoarthritis, unspecified site; Z88.0 Allergy status to penicillin; Z79.82 Long term (current) use of aspirin; Z79.899 Other long term (current) drug therapy
CPT/HCPCS: 36415; 80053; 81001; 83735; 84443; 84484; 85025; 86140; 93005; 93010; 99284; 99285-25; A9270-GY

== ENCOUNTER 2021-07-02 16:46 | Emergency (ER) | payer MEDICARE, OTHER ==
[2021-07-02 17:04] VITALS: BP 129/95; PULSE 114
[2021-07-02] MEDS ORDERED: Sodium Chloride 0.9% 10 ML Syringe FLUSH PRN (17:06)
[2021-07-02] MEDS: Meclizine 25 MG Tab PO ONE (17:12)
[2021-07-02] MEDS: Sodium Chloride 0.9% 1,000 ML IV SCH (17:20)
--- NOTE | 2021-07-02 17:51 | EDM.PDOC ---
ED HPI GENERAL MEDICAL PROBLEM - General Chief Complaint: General Stated Complaint: WEAKNESS Time Seen by Provider: 07/02/21 17:06 Source of Information: Reports: Patient History Limitations: Reports: No Limitations - History of Present Illness INITIAL COMMENTS - FREE TEXT/NARRATIVE: Patient states she has been stuggling with dizziness off and on since yesterday. Worse with movement and laying down. Better with standing still. NO head trauma, not on a blood thinner. Has been taking her medications. States she has a history of some dizziness, never had MRI. Has been dealing with back pain, taking tylenol for this. Been sitting out in the heat and the smoke at night. Also dealing with thumb sewer gas at her apartment. Does not have a CO detector. Was seen at the clinic today as at noon she had a significant spell of dizziness. [place] like her heart was racing. no chest pain, history of CAD and PTCA in past. Clinic did an EKG and set her here for above complaints. no fevers or chills, had some significant dizziness after her covid 19 vaccines. - Related Data Allergies Allergy/AdvReac Type Severity Reaction Status Date / Time Penicillins Allergy Severe Hives Verified 07/02/21 17:06 Home Meds: Home Meds Albuterol Sulfate [Albuterol Sulfate HFA] 2 puff INH Q4H PRN 08/11/14 [History] Aspirin [Halfprin] 81 mg PO DAILY 08/11/14 [History] Cyclobenzaprine [Flexeril] 5 - 10 mg PO TID PRN 08/11/14 [History] Rosuvastatin [Crestor] 10 mg PO DAILY 08/11/14 [History] Nitroglycerin [Nitrostat] 0.4 mg SL Q5M PRN 08/05/16 [History] carvediloL [Coreg] 12.5 mg PO BIDMEALS 08/05/16 [History] metFORMIN [Glucophage] 500 mg PO BIDMEALS 08/05/16 [History] Cetirizine [ZyrTEC] 10 mg PO DAILY 10/20/17 [History] Omeprazole 20 mg PO DAILY PRN 10/20/17 [History] Tiotropium Br/Olodaterol HCl [Stiolto Respimat Inhal [place]] 2 puff PO DAILY 10/20/17 [History] Triamcinolone Acetonide [Nasacort] 1 spray NASBOTH DAILY PRN 10/20/17 [History] Levothyroxine 150 mcg PO ACBREAKFAST 08/16/18 [History] Losartan [Cozaar] 25 mg PO DAILY 08/16/18 [History] Albuterol/Ipratropium [DuoNeb 3.0-0.5 MG/3 ML] 3 ml NEB Q4H PRN #25 neb 08/20/18 [Rx] Furosemide [Lasix] 40 mg PO BIDDIURETIC tablet 08/20/18 [Rx] guaiFENesin [Mucinex] 1,200 mg PO BID tab.er 08/20/18 [Rx] Past Medical History HEENT History: Reports: Other (See Below) Other HEENT History: allergic rhinitis. presbyopia. hypermetropia. blepharitis Cardiovascular History: Reports: Hypertension, Stents Other Cardiovascular History: tachycardia, varicose veins Respiratory History: Reports: COPD Gastrointestinal History: Reports: GERD Other Gastrointestinal History: hx colon polyps Genitourinary History: Reports: Other (See Below) Other Genitourinary History: stress incont. bladder surgery(urethropexy) Musculoskeletal History: Reports: Back Pain, Chronic, Osteoarthritis Other Musculoskeletal History: carpal tunnel suyndrome Endocrine/Metabolic History: Reports: Diabetes, Type II Other Dermatologic History: rosacea - Infectious Disease History Infectious Disease History: Reports: Chicken Pox, Measles, Pertussis (Whooping Cough), Rubella - Past Surgical History HEENT Surgical History: Reports: Adenoidectomy, Cataract Surgery, Tonsillectomy Female Surgical History: Reports: Section Other Female Surgeries/Procedures: bladder sx Endocrine Surgical History: Reports: Other (See Below) Other Endocrine Surgeries/Procedures: thyroid nodule Musculoskeletal Surgical History: Reports: Carpal Tunnel Other Musculoskeletal Surgeries/Procedures:: laser ablation to vericose veins Social & Family History - Family History Family Medical History: No Pertinent Family History - Tobacco Use Tobacco Use Status *Q: Unknown Ever Used Tobacco - Caffeine Use Caffeine Use: Reports: Coffee ED ROS GENERAL - Review of Systems Review Of Systems: See Below Constitutional: Reports: No Symptoms HEENT: Reports: No Symptoms Respiratory: Reports: Shortness of Breath Cardiovascular: Reports: Palpitations GI/Abdominal: Reports: No Symptoms. Denies: Abdominal Pain, Nausea, Vomiting : Reports: No Symptoms. Denies: Discharge Musculoskeletal: Reports: Back Pain Skin: Reports: No Symptoms Neurological: Reports: Dizziness Psychiatric: Reports: No Symptoms Hematologic/Lymphatic: Reports: No Symptoms Immunologic: Reports: No Symptoms ED EXAM, GENERAL - Physical Exam Exam: See Below Exam Limited By: No Limitations General Appearance: Alert, WD/WN, No Apparent Distress Eye Exam: Bilateral Eye: EOMI, Normal Inspection, PERRL Nose: Normal Inspection, Normal Mucosa Throat/Mouth: Normal Inspection, Normal Lips, Normal Teeth, Normal Voice Head: Atraumatic, Normocephalic Neck: Normal Inspection, Supple, Non-Tender Respiratory/Chest: No Respiratory Distress, Lungs Clear, Normal Breath Sounds, Chest Non-Tender Cardiovascular: Normal Peripheral Pulses, Regular Rate, Rhythm, No Murmur GI/Abdominal: Normal Bowel Sounds, Soft, Non-Tender, No Abnormal Bruit Extremities: Normal Inspection, Normal Range of Motion, Pedal Edema (non piting) Neurological: Alert, Oriented, CN II-XII Intact, Normal Cognition, No Motor/Sensory Deficits Psychiatric: Normal Affect, Normal Mood Skin Exam: Warm #1 Interpretation EKG Date: 07/02/21 Time: 15:37 Rhythm: Other (P wave is consistent, trigeminy pattern with PVC that is early and drops a beat.) Rate (Beats/Min): 85 [place]: Normal P-Wave: Present QRS: Normal ST-T: Normal EKG Interpretation Comments: note, done at the clinic #2 Interpretation EKG Date: 07/02/21 Time: 18:06 Rhythm: NSR Rate (Beats/Min): 81 [place]: Normal P-Wave: Present QRS: Normal ST-T: Normal QT: Normal EKG Interpretation Comments: unchanged, frequent PVC Course - Vital Signs Last Recorded V/S: Last Vital Signs Temp 36.6 C 07/02/21 16:52 Pulse 114 H 07/02/21 16:52 Resp 18 07/02/21 16:52 BP 129/95 H 07/02/21 16:52 Pulse Ox 96 07/02/21 16:52 - Orders/Labs/Meds Orders: Active Orders 24 hr Category Date Time Status EKG 12 Lead [EKG Documentation Completion] [RC] STAT Care 07/02/21 17:56 Active Chest 1V Frontal [CR] Stat Exams 07/02/21 18:19 Taken CORONAVIRUS COVID-19 RAPID [MOLEC] Stat Lab 07/02/21 18:08 Received Sodium Chloride 0.9% [Normal Saline] 1,000 ml Med 07/02/21 17:15 Active IV ASDIRECTED Sodium Chloride 0.9% [Saline Flush] Med 07/02/21 17:06 Active 10 ml FLUSH ASDIRECTED PRN Peripheral IV Insertion Adult [OM.PC] Routine Oth 07/02/21 17:06 Ordered Medication Orders Sodium Chloride (Normal Saline) 1,000 mls @ 1,000 mls/hr IV ASDIRECTED CHERELLE Last Admin: 07/02/21 17:20 Dose: 1,000 mls/hr Documented by: KRISTINA Sodium Chloride (Sodium Chloride 0.9% 10 Ml Syringe) 10 ml FLUSH ASDIRECTED PRN PRN Reason: Keep Vein Open Labs: Laboratory Tests 07/02/21 07/02/21 Range/Units 17:17 17:17 WBC 6.5 (4.0-10.0) x10^3/uL RBC 4.68 (4.00-5.50) x10^6/uL Hgb 12.6 (12.0-16.0) g/dL Hct 38.3 (33.0-47.0) % MCV 81.8 (78.0-93.0) fL MCH 26.9 (26.0-32.0) pg MCHC 32.9 (32.0-36.0) g/dL RDW Coeff of [place]bal[place] 15.4 H (10.0-15.0) % Plt Count 228 (130-400) x10^3/uL Neut % (Auto) 69.3 (50.0-80.0) % Lymph % (Auto) 20.5 L (25.0-50.0) % [place] % (Auto) 6.6 (2.0-11.0) % Eos % (Auto) 3.4 (0.0-4.0) % Baso % (Auto) 0.2 (0.2-1.2) % Sodium 139 (136-145) mmol/L Potassium 3.8 (3.5-5.1) mmol/L Chloride 100 (98-107) mmol/L Carbon Dioxide 30 (21-32) mmol/L Anion Gap 12.8 (5-15) mmol/L BUN 19 H (7-18) mg/dL Creatinine 0.9 (0.55-1.02) mg/dL Est Cr Clr Drug Dosing TNP Estimated GFR (MDRD) > 60 Glucose 119 H (70-99) mg/dL Calcium 8.9 (8.5-10.1) mg/dL Corrected Calcium 9.1 (8.5-10.1) mg/dL Magnesium 2.1 (1.8-2.4) mg/dL Total Bilirubin 0.5 (0.2-1.0) mg/dL AST 12 L (15-37) U/L ALT 25 (14-59) U/L Alkaline Phosphatase 66 (46-116) U/L Troponin I High Sens 141 H* (<=51) ng/L Total Protein 8.0 (6.4-8.2) g/dL Albumin 3.8 (3.4-5.0) g/dL Globulin 4.2 Albumin/Globulin Ratio 0.90 TSH, Ultra Sensitive 0.311 L (0.358-3.74) uIU/mL Meds: Medications Generic Name Dose Route Start Last Admin Trade Name Freq PRN Reason Stop Dose Admin Sodium Chloride 1,000 mls @ 1,000 mls/hr 07/02/21 17:15 07/02/21 17:20 Normal Saline IV 1,000 mls/hr ASDIRECTED CHERELLE Administration Sodium Chloride 10 ml 07/02/21 17:06 Sodium Chloride 0.9% 10 Ml Syringe FLUSH ASDIRECTED PRN Keep Vein Open Discontinued Medications Generic Name Dose Route Start Last Admin Trade Name Freq PRN Reason Stop Dose Admin Aspirin 324 mg 07/02/21 17:54 07/02/21 18:06 Aspirin 81 Mg Tab.Chew PO 07/02/21 17:55 324 mg ONETIME ONE Administration Clopidogrel Bisulfate 75 mg 07/02/21 17:54 07/02/21 18:06 Clopidogrel 75 Mg Tab PO 07/02/21 17:55 75 mg ONETIME ONE Administration Meclizine HCl 25 mg 07/02/21 17:06 07/02/21 17:12 Meclizine 25 Mg Tab PO 07/02/21 17:07 25 mg ONETIME ONE Administration - Radiology Interpretation Free Text/Narrative:: ct head without any acute intercranial findings. chest x-ray with cardiomegaly and central vascular congestion , similar to prior, no other acute interpreted by radiology - Re-Assessments/Exams Free Text/Narrative Re-Assessment/Exam: 07/02/21 18:05 troponin is elevated, Has been receiving IV fluids, , meclizine. back from CT. Will repeat EKG, give aspirin 324 mg po, plavix 75 mg and rapid covid test. Need transfer for cardiology. no active chest pain. 07/02/21 18:[address] Rainey, hospitalist at [facility]. Accepts for admission. ASks for heparin bolus and drip. 4000 units bolus and 1000 units/hr. Departure - Departure Time of Disposition: 19:01 Disposition: DC/Tfer to [facility] 02 Clinical Impression: NSTEMI (non-ST elevated myocardial infarction) - Discharge Information Referrals: Batsheva Navarrete PA-C [Primary Care Provider] - Forms: ED Department Discharge, Interfacility Transfer [facility] Sepsis Event Note (ED) - Evaluation Sepsis Screening Result: No Definite Risk - Focused Exam Vital Signs: Vital Signs Temp Pulse Resp BP Pulse Ox 07/02/21 16:52 36.6 C 114 H 18 129/95 H 96 - My Orders Last 24 Hours: My Active Orders 07/02/21 17:06 Sodium Chloride 0.9% [Saline Flush] 10 ml FLUSH ASDIRECTED PRN Peripheral IV Insertion Adult [OM.PC] Routine 07/02/21 17:15 Sodium Chloride 0.9% [Normal Saline] 1,000 ml IV ASDIRECTED 07/02/21 17:56 EKG 12 Lead [EKG Documentation Completion] [RC] STAT 07/02/21 18:08 CORONAVIRUS COVID-19 RAPID [MOLEC] Stat 07/02/21 18:19 Chest 1V Frontal [CR] Stat - Assessment/Plan Last 24 Hours: My Active Orders 07/02/21 17:06 Sodium Chloride 0.9% [Saline Flush] 10 ml FLUSH ASDIRECTED PRN Peripheral IV Insertion Adult [OM.PC] Routine 07/02/21 17:15 Sodium Chloride 0.9% [Normal Saline] 1,000 ml IV ASDIRECTED 07/02/21 17:56 EKG 12 Lead [EKG Documentation Completion] [RC] STAT 07/02/21 18:08 CORONAVIRUS COVID-19 RAPID [MOLEC] Stat 07/02/21 18:19 Chest 1V Frontal [CR] Stat
[2021-07-02 17:52] LABS: CHLORIDE,CL 100 mmol/L (98-107); SODIUM,NA 139 mmol/L (136-145)
[2021-07-02 17:53] LABS: ANION GAP 12.8 mmol/L (5-15)
[2021-07-02] MEDS: Clopidogrel 75 MG Tab PO ONE (18:06)
[2021-07-02] MEDS: Aspirin 81 MG Tab.Chew PO ONE (18:06)
--- NOTE | 2021-07-02 18:21 | CT ---
[id number] CT/CT Head WO IV EXAM: CT Head WO IV CLINICAL DATA: DIZZINESS. COMPARISON STUDY: None FINDINGS: No intracranial hemorrhage, extra-axial fluid collection, mass, or acute ischemia. No hydrocephalus. Empty sella, finding on its own is likely of no clinical significance. Finding can be seen with intracranial hypertension. No previous imaging for comparison or correlation. Calvarium intact. Paranasal sinuses and mastoid air cells are clear. IMPRESSION: No acute intracranial findings. Other findings are described above. Eron Diaz MD 07/02/21 [id number] Thank you for allowing us to participate in the care of your patient.
--- NOTE | 2021-07-02 18:45 | CR ---
[id number] RAD/RAD Chest PA or AP 1V EXAM: RAD Chest PA or AP 1V INDICATION: PALPITATIONS,NSTEMI. COMPARISON: 2017. DISCUSSION/IMPRESSION: Cardiomegaly and central vascular congestion, similar to the prior examination. Bilateral symmetric lung hyperinflation, similar to the prior examination. Negative for pneumonia. No pleural effusion or pneumothorax. Eron Diaz MD 07/02/21 [id number] Thank you for allowing us to participate in the care of your patient.
[2021-07-02] MEDS: Heparin Sodium 5,000 Units/ML Vial IVPUSH ONE (19:12)
[2021-07-02] MEDS: Heparin Sodium/0.45% NaCl 25,000 UNITS/500 ML BAG IV SCH (19:13)
== END 2021-07-02 19:30 | disposition short-term general hospital (02) ==
LOC: VM.ED 16:46
DX: I21.4 Non-ST elevation (NSTEMI) myocardial infarction (principal); I10 Essential (primary) hypertension; J44.9 Chronic obstructive pulmonary disease, unspecified; K21.9 Gastro-esophageal reflux disease without esophagitis; E11.9 Type 2 diabetes mellitus without complications; M19.90 Unspecified osteoarthritis, unspecified site; Z79.899 Other long term (current) drug therapy; Z88.0 Allergy status to penicillin; Z79.82 Long term (current) use of aspirin; Z79.84 Long term (current) use of oral hypoglycemic drugs; Z20.822 Contact with and (suspected) exposure to COVID-19
CPT/HCPCS: 70450; 71045; 80053; 83735; 84443; 84484; 85025; 93005; 93010; 99284; 99285; A9270; J1644; J7030; U0002

== ENCOUNTER 2023-01-26 14:21 | Emergency (ER) | payer MEDICARE, OTHER ==
[2023-01-26 15:38] LABS: ANION GAP 10.9 mmol/L (5-15)
[2023-01-26 18:59] VITALS: BP 149/66; PULSE 69
== END 2023-01-26 19:52 | disposition home or self-care (01) ==
LOC: VM.ED 14:21
DX: R42 Dizziness and giddiness (principal); R77.8 Other specified abnormalities of plasma proteins; I10 Essential (primary) hypertension; J44.9 Chronic obstructive pulmonary disease, unspecified; K21.9 Gastro-esophageal reflux disease without esophagitis; E11.9 Type 2 diabetes mellitus without complications; M19.90 Unspecified osteoarthritis, unspecified site; Z88.0 Allergy status to penicillin; Z79.82 Long term (current) use of aspirin; Z79.84 Long term (current) use of oral hypoglycemic drugs; Z79.899 Other long term (current) drug therapy; Z87.891 Personal history of nicotine dependence
CPT/HCPCS: 36415; 70450; 71046; 80053; 82550; 83615; 84484; 85025; 86140; 93005; 93010; 99284

== ENCOUNTER 2023-05-23 19:41 | Emergency (ER) | payer MEDICARE, OTHER ==
[2023-05-23 19:53] VITALS: BP 162/64; PULSE 72
[2023-05-23] MEDS ORDERED: Lidocaine 1% 10 ML MDV INJECT ONE (19:55)
== END 2023-05-23 20:19 | disposition home or self-care (01) ==
LOC: VM.ED 19:41
DX: S63.501A Unspecified sprain of right wrist, initial encounter (principal); S01.81XA Laceration without foreign body of other part of head, initial encounter; S60.221A Contusion of right hand, initial encounter; I10 Essential (primary) hypertension; J44.9 Chronic obstructive pulmonary disease, unspecified; K21.9 Gastro-esophageal reflux disease without esophagitis; E11.9 Type 2 diabetes mellitus without complications; M19.90 Unspecified osteoarthritis, unspecified site; Z88.0 Allergy status to penicillin; Z79.82 Long term (current) use of aspirin; Z79.84 Long term (current) use of oral hypoglycemic drugs; Z79.899 Other long term (current) drug therapy; W18.30XA Fall on same level, unspecified, initial encounter; Y92.480 Sidewalk as the place of occurrence of the external cause
CPT/HCPCS: 12011; 99282; J3490

== ENCOUNTER 2025-07-07 21:08 | Emergency (ER) | payer MEDICARE ==
[2025-07-07] MEDS ORDERED: Sodium Chloride 0.9% 10 ML Syringe FLUSH PRN (21:18)
[2025-07-07 21:30] LABS: BASOPHILS ABSOLUTE AUTO 0.0 x10^3/uL (0.0-0.2); BASOPHILS PERCENT AUTO 0.3 % (0.2-1.2); EOSINOPHILS ABSOLUTE AUTO 0.6 x10^3/uL (0.0-0.5); EOSINOPHILS PERCENT AUTO 7.8 % (0.0-4.0); IMMATURE GRAN ABSOLUTE AUTO 0.01 x10^3/uL (0.00-0.07); IMMATURE GRAN PERCENT AUTO 0.10 % (0.00-0.43); LYMPHOCYTES ABSOLUTE AUTO 1.8 x10^3/uL (1.0-4.8); LYMPHOCYTES PERCENT AUTO 23.3 % (25.0-50.0); MONOCYTES ABSOLUTE AUTO 0.6 x10^3/uL (0.0-0.8); MONOCYTES PERCENT AUTO 8.0 % (2.0-11.0); NEUTROPHILS ABSOLUTE AUTO 4.6 x10^3/uL (1.8-7.7); NEUTROPHILS PERCENT AUTO 60.5 % (50.0-80.0); PLATELET COUNT,PLT 241 x10^3/uL (130-400); RED BLOOD CELL COUNT 4.57 x10^6/uL (4.00-5.50); WHITE BLOOD CELL COUNT,WBC 7.5 x10^3/uL (4.0-10.0)
[2025-07-07 21:35] LABS: APPEARANCE,URINE CLEAR (CLEAR); GLUCOSE,URINE NEGATIVE (NEGATIVE); OCCULT BLOOD,URINE TRACE-INTACT (NEGATIVE)
[2025-07-07 21:44] LABS: INR 1.0 (0.9-1.1); PTT,PARTIAL THROMBOPLSTIN TIME 27.7 SEC (23.5-33.2)
[2025-07-07 21:45] LABS: SQUAMOUS EPITHELIAL CELLS,UR FEW /HPF (NOT SEEN)
[2025-07-07 21:52] LABS: A/G RATIO 1.12; ALANINE AMINOTRANSFERASE,ALT 18.0 U/L (14-59); ASPARTATE AMNIOTRANSFERASE,AST 13.0 U/L (15-37); BILIRUBIN TOTAL 0.5 mg/dL (0.2-1.0); BLOOD UREA NITROGEN,BUN 18.0 mg/dL (7-18); CARBON DIOXIDE,CO2 30.0 mmol/L (21-32); CHLORIDE,CL 98.0 mmol/L (98-107); CREATININE 1.2 mg/dL (0.55-1.02); EST CRCL DRUG DOSING (CG) 30.56 mL/min; GLUCOSE RANDOM 151.0 mg/dL (70-99); POTASSIUM,K 3.9 mmol/L (3.5-5.1); PROTEIN TOTAL,TP 7.2 g/dL (6.4-8.2); SODIUM,NA 139.0 mmol/L (136-145)
[2025-07-07 21:53] LABS: ESTIMATED GFR 46.0 mL/min (>=60)
[2025-07-07] MEDS: LORazepam 2 MG/ML SDV IVPUSH ONE (21:56)
[2025-07-07] MEDS: Ondansetron 4 MG/2 ML SDV IVPUSH ONE (21:56)
[2025-07-07] MEDS: Take Home: Nitrofurantoin Monohydrate/Macrocrystalline 100 MG, 6 Cap Pack PO ONE (22:49)
[2025-07-07 22:58] VITALS: PULSE 68
[2025-07-07 22:59] VITALS: BP 143/63
== END 2025-07-07 22:56 | disposition home or self-care (01) ==
LOC: VM.ED 21:08
DX: H61.23 Impacted cerumen, bilateral (principal); H81.10 Benign paroxysmal vertigo, unspecified ear; N39.0 Urinary tract infection, site not specified; I11.0 Hypertensive heart disease with heart failure; I50.9 Heart failure, unspecified; E11.9 Type 2 diabetes mellitus without complications; E66.9 Obesity, unspecified; Z88.0 Allergy status to penicillin; Z79.890 Hormone replacement therapy; Z79.82 Long term (current) use of aspirin; Z79.899 Other long term (current) drug therapy
CPT/HCPCS: 36415; 70450; 71045; 80053; 81001; 83735; 84484; 85025; 85610; 85730; 86140; 87086; 87088; 87147; 87186; 93005; 93010; 96374; 96375; 99284; 99284-25; A9270-GY; J2060; J2405